=== PATIENT | female | born 1945 | race Caucasian/White ===

== ENCOUNTER 2017-10-21 05:52 | Inpatient (IN) | payer MEDICARE, SELFPAY ==
[2017-10-21] VITALS (13 sets, daily range): BP systolic 115–136; BP diastolic 33–67; PULSE 64–73; RESP 16–22; TEMP 36.2–37.3; O2SAT 92–100
[2017-10-21] MEDS: Lactated Ringers 1,000 ML 80 ML IV (06:41)
[2017-10-21] MEDS: Bupivacaine LIPOSOME/PF 133 MG/10 ML VIAL IJ (07:10)
[2017-10-21] MEDS: Lactated Ringers 1,000 ML 900 ML IV (07:30)
[2017-10-21] MEDS: Hydrogen Peroxide 3% 480 ML BTL (09:30)
[2017-10-21] MEDS: Bupivacaine 0.25% Pres-Free 30 ML VIAL 60 ML (09:30)
--- NOTE | 2017-10-21 10:21 | DI.REPORT_ITS ---
SYMPTOMS/DIAGNOSIS: CHECK TKR COMPONENTS LEFT KNEE: Two views. Comparison 07/18/17. The patient is now status post left total knee replacement. The orthopedic hardware appears in good position. The bones are intact. Skin agustin are present. IMPRESSION: Left TKR.
[2017-10-21] MEDS: POTASSIUM CHLORIDE/0.9% NACL 1,000 ML 125 MEQ IV ×2 (11:26→19:55)
[2017-10-21] MEDS: oxyCODONE-CR 10 MG TABCR PO ×2 (12:29→23:57)
--- NOTE | 2017-10-21 14:00 | IN_ITS ---
INPATIENT PHYSICAL THERAPY EVALUATION Date: 10/21/17 Referring Doctor: Thor Higuera PT Orders: PT Consult mobilize post op L TKR. Get OOB ambulating this afternoon. WBAT to L leg Precautions: WBAT L LE PATIENT PROFILE/ADMITTING DIAGNOSIS: Pt is a 72yr old female s/p left total knee arthroplasty by Dr. Higuera 10/21/17 PMHX: bilateral knee arthritis, right total knee arthroplasty 07/12, diabetes mellitus type II, pulmonary embolism, hypertension, hernia repair, abdominal hysterectomy Social History/Home Situation: Lives with in a 2 level home, 2-3 steps to enter, flight of steps to upstairs bedroom/bathroom but has an electric stair lift chair she can use to get upstairs. Baseline mobility independent gait with no device, independent with ADLS Equipment owned/DME: angie size FWW, commode, tub chair, grab bars, electric stair lift chair, cryocuff SUBJECTIVE: Pt lying in bed, agreeable to PT consult. States she has full sensation in her left leg, demonstrates by lifting it off the bed. OBJECTIVE: General Observation: IV L UE, luna catheter, MELTON dressing left leg, knee immobilizer L LE Mental Status: A& O x3 Pain: no c/o pain BED MOBILITY/TRANSFERS: *knee immobilizer for all transfers Supine-sit: HOB 30 degrees, supervision Sit-stand: SBA with FWW Stand-sit: SBA Sit-supine: HOB flat, supervision GAIT: * knee immobilizer for all gait SBA with FWW 25ftx2, WBAT L LE. Step to gait pattern with cues for sequencing THEREX Initiated ankle pumps, quad sets, glute sets x 20 reps BALANCE: Static sitting normal Dynamic Sitting normal Static Standing fair Dynamic Standing fair SPECIAL TESTS: Mobility Limitations Standardized Measure [facility] AM -PAC 6 clicks Basic Mobility Inpatient Short Form: raw score: 18 standardized score: 43.63 CMS score: 46.58% CMS modifier: CK INFORMED CONSENT/EDUCATION: Pt instructed in purpose of PT Consult and plan of care ASSESSMENT: Pt is a 72yr old female s/p left total knee arthroplasty by Dr. Higuera 10/21/17 in setting of bilateral knee arthritis, right total knee arthroplasty 07/12, diabetes mellitus type II. Patient presents with clinical signs and symptoms consistent with post op TKA as demonstrated by the following impairment level findings: weakness left quad, decreased mobility with bed transfers, standing transfers, gait requiring FWW for gait stability. Pt will benefit from skilled therapy intervention, anticipate return to home setting when medically cleared. Impairments are contributing to the following functional limitations: AMPAC score CMS score: 46.58% Patient is assessed as a * Moderate [id number] complexity based on the following: History: s/p left total knee arthroplasty by Dr. Higuera 10/21/17 in setting of bilateral knee arthritis, right total knee arthroplasty 07/12, diabetes mellitus type II. Examination: weakness left quad, decreased mobility with bed transfers, standing transfers, gait requiring FWW for gait stability. Presentation: evolving Decision Making: AMPAC score CMS score: 46.58% GOALS Goals x1 week 1. Supine-sit independent 2. Sit-Supine independent 3. Sit-Stand: supervision with FWW 4. Stand-sit: supervision 5. Bed-chair SBA with FWW 6. Chair-bed SBA with FWW 7. Gait supervision with FWW 75ftx2 WBAT L LE 8. Stairs: up.down 3 steps, SBA WBAT L LE 9. I with home exercise program for TKA PLAN OF CARE/TREATMENT PLAN: 1-2x/day, 7 days/ week x 1 week Plan of care has been reviewed with the SENIOR CIVIL ENGINEER providing the service under Physical therapy direction. Initiate physical therapy intervention for strengthening, bed mobility, transfers, gait, stairs, balance training, use of assistive device. DISCHARGE RECOMMENDATIONS Home with , pt has all DME TREATMENT TIME/MINUTES/CODES 25min IE 1335 G Codes in the area mobility of walking and moving around: current status [id number] -CK projected status GP [id number] . Discharge status ( if discharging) GP [id number] ammcd on AMPAC score CMS score: 46.58 % Yani Julian PT
[2017-10-21] MEDS: Docusate Sodium 100 MG CAP PO ×2 (14:14→19:55)
[2017-10-21] MEDS: Oxybutynin 5 MG TAB PO ×2 (14:14→19:55)
[2017-10-21] MEDS: Ketorolac 30 MG/ML VIAL IVP ×2 (15:25→21:33)
[2017-10-21] MEDS: Normal Saline Flush 10 ML SYR IV ×2 (15:26→21:34)
--- NOTE | 2017-10-21 16:59 | ROE_ITS ---
DATE OF PROCEDURE: October 21, 2017 PREOPERATIVE DIAGNOSIS: Osteoarthritis, left knee. POSTOPERATIVE DIAGNOSIS: Osteoarthritis, left knee. PROCEDURE: Left total knee arthroplasty. COMPONENTS USED: A size 2 tibial component, a size 2 posterior cruciate substituting femoral compone nt, a 10-mm posterior cruciate substituting size 2 polyethylene insert. All components were cemented . The patella was not resurfaced. SURGEON: Thor Higuera M.D. INTEGRITY SPECIALIST: Ranjit Bennett PA-C ANESTHESIA: General, with femoral nerve block, Jose Maria Hoover CRNA INDICATIONS: This is a 72-year-old white female with progressive pain and dysfunction of her left kn ee due to osteoarthritis. She has previously undergone a successful right total knee replacement in 2016. She has reached the point where she can no longer tolerate the pain in her left knee on a day- to-day basis and total knee arthroplasty was recommended. The risks and complications of the procedu re were explained to the patient in detail preoperatively. PROCEDURE: The patient was taken to the Operating Room on 10/21/17. A femoral nerve block was admini stered. She was placed supine on the operating table and a general anesthetic was administered. A p roximal tourniquet was applied to the left thigh and then the left lower extremity was prepped from t oes to tourniquet and draped free in the usual sterile fashion. Under proximal tourniquet control, a n anterior midline incision was made beginning just distal to the tibial tubercle and extending 4 inc hes proximal to the patella in the anterior midline. The incision was carried down through the fasci a. A medial parapatellar capsular incision was made and was carried proximally and longitudinally in the midline of the quadriceps tendon. A complete medial subperiosteal release was performed. The p atella was everted and the knee was hyperflexed. Medial and lateral meniscectomies were performed an d the anterior posterior cruciate ligament was sacrificed. The distal femur was resected using intra medullary alignment guides and jigs. The patient was found to require a size 2 femoral component. U sing extramedullary alignment guides and jigs, the proximal tibia was resected. Resection was 2 mm o ff the most deformed side which would be the medial side. Using the tibial trial as a guide for rota tional alignment, the keel for the tibial component was then reamed and punched out in proper rotatio nal alignment. A trial reduction at this point showed the knee came to full extension with a 10-mm i nsert while still providing good stability to varus/valgus stressing from 0 to 90 degrees of flexion. The patella was visualized and the articular cartilage in the patella appeared to be well preserved . When I measured the patella the thickness was only 20 mm. I felt that the resection would not pro vide enough bone to support a patellar component. I, therefore, used the electrocautery to cauterize circumferentially around the patella to denervate the patella. The proximal tibia was prepared for cementing with pulsed irrigation lavage with saline solution and drying with peroxide-soaked strip sponges. One batch of gentamicin-impregnated methylmethacrylate wa s vacuum mixed and hand packed onto the prepared tibia. Cement was then placed on the undersurface o f the tibial component. The tibial component was inserted and impacted into place with an impactor a nd mallet. It was further pressurized using the trial components and extending the knee. Excess abdulaziz ent was trimmed from the margins of the tibial component while the cement was still soft using the pl astic cement removal tool. When the first batch of methylmethacrylate had cured, the trial component s were removed. The posterior recesses were irrigated with pulsed irrigation lavage and then the dis bunny femur was prepared for cementing with pulsed irrigation lavage with saline solution and drying wi th peroxide-soaked strip sponges. A second batch of gentamicin-impregnated methylmethacrylate was va cuum mixed and was hand packed onto the prepared distal femur. Cement was then placed on the posteri or aspect of the femoral component. The femoral component was inserted and impacted into place with the impactor and mallet and pressurized using the trial insert and extending the knee. Excess cement was trimmed from the margins of the femoral component while the cement was still soft using the ceme nt removal tool. When the second batch of gentamicin-impregnated methylmethacrylate had cured, the t rial insert was removed. The posterior recesses were checked a final time and any residual bone or c ement debris was removed at this time using rongeurs and osteotomes. Betadine and saline solution wa s instilled into the wound, allowed to stay for 60 seconds, and then suctioned. The actual 10-mm ins ert was selected and was inserted into the tibial component and then reduced onto the femoral condyle s. Patellar tracking using the rule of no thumb showed that patellar tracking was anatomic. The kne e was flexed over soft goods and closure was begun. The medial capsule and incision were infiltrated with 0.5% Marcaine solution. The medial capsule was approximated with interrupted [id number] sutures of #1 Vicryl suture material. The quadriceps tendon incision was approximated with interrupted [id number] sutures of #1 Vicryl suture materia l. The subcu was approximated with interrupted #2-0 Vicryl sutures. The skin edges were approximate d with skin agustin. Sterile dressings were applied of Xeroform gauze, sterile gauze 4x4s, ABD pad, wrapped with a Kerlix bandage, and then a long leg Molina compressive dressing was applied. A knee im mobilizer splint was placed over the compression dressing to maintain the knee in extension. The humberto rniquet was released at this point. The patient received 1 gram of tranexamic acid prior to tourniqu et inflation and a second gram of tranexamic acid after tourniquet deflation to decrease perioperativ e bleeding. The patient's anesthesia was reversed without complication. Blood loss was minimal due to tourniquet use. The patient was discharged to the Recovery Room in good condition.
[2017-10-21] MEDS: glipiZIDE 5 MG TAB 10 MG PO (19:54)
[2017-10-21] MEDS: traZODone 50 MG TAB 100 MG PO (21:34)
[2017-10-22] VITALS (7 sets, daily range): BP systolic 100–136; BP diastolic 46–66; PULSE 55–124; RESP 16–20; TEMP 36.7–37.2; O2SAT 94–97
[2017-10-22] MEDS: Ketorolac 30 MG/ML VIAL IVP ×4 (04:08→21:20)
[2017-10-22] MEDS: Normal Saline Flush 10 ML SYR IV ×3 (04:08→21:21)
[2017-10-22 06:52] LABS: HCT 32.6 % (36.0-46.0); Mean Corp. HGB Concentration 33.7 g/dL (32.0-36.0); Mean Corpuscular Hemoglobin 30.8 pg (27.0-33.0); Mean Corpuscular Volume 91.3 fL (80-95); Mean Platelet Volume 10.9 fL (8.0-11.0); Platelet Count 143 x1000/uL (130-400); RBC 3.57 m/cumm (4.00-5.20); RBC Distribution Width 13.2 % (11.7-14.6); White Blood Cell Count 10.38 k/cumm (4.4-10.8)
--- NOTE | 2017-10-22 08:20 | INPTTR_ITS ---
PHYSICAL THERAPY PROGRESS NOTE Date: 10/22/17 PRECAUTIONS: WBAT on L SUBJECTIVE: Augusta states that she feels good this morning, that the urinary catheter is the only thing causing her discomfort. OBJECTIVE PAIN: No c/o pain BED MOBILITY/TRANSFERS Supine-sit: I with HOB flat Sit-stand: S Stand-sit: S GAIT Assistive Device FWW Weightbearing WBAT on L Assist: S Distance: 100' Deviation Step-through THEREX: Patient performed a LE strengthening and stabilization program, as per flow sheet. Exercises were performed with Molina dressing in place and knee immobilizer on. Patient performed ankle pumps, quad sets, glute sets, and SLR. See flow sheet for reps. ASSESSMENT: Patient tolerated session without c/o pain in L LE. Patient was able to demonstrate steady pace and gait with FWW support utilizing a step- through gait pattern. Patient would benefit from continued strengthening and gait training to improve endurance. PLAN: Continue with PT's POC TREATMENT CODES/TIME: 30 minutes; TAx1, TPx1
[2017-10-22] MEDS: Lovastatin 20 MG TAB PO (08:25)
[2017-10-22] MEDS: Multivitamin w/Minerals TAB 1 TAB PO (08:25)
[2017-10-22] MEDS: Losartan 25 MG TAB PO (08:26)
[2017-10-22] MEDS: Pantoprazole 40 MG TABCR PO (08:26)
[2017-10-22] MEDS: Oxybutynin 5 MG TAB PO ×3 (08:26→19:54)
[2017-10-22] MEDS: Docusate Sodium 100 MG CAP PO ×3 (08:26→19:54)
[2017-10-22] MEDS: glipiZIDE 5 MG TAB 10 MG PO ×2 (08:26→19:54)
[2017-10-22] MEDS: Aspirin 81 MG CHEW PO (08:26)
[2017-10-22] MEDS: Enoxaparin 30 MG/0.3 ML SYR SC (09:39)
--- NOTE | 2017-10-22 11:13 | INPTTR_ITS ---
PHYSICAL THERAPY PROGRESS NOTE Date: 10/22/17 PRECAUTIONS: WBAT L LE, knee immobilizer with out of bed activity SUBJECTIVE: Pt stating she is bored, asking when the luna catheter will come out. OBJECTIVE: General Observation: IV L UE, luna catheter, MELTON dressing left leg, knee immobilizer L LE Pain: no c/o pain BED MOBILITY/TRANSFERS: *knee immobilizer for all transfers Sit-stand: supervision with FWW Stand-sit: supervision GAIT: * knee immobilizer for all gait supervision with FWW 200ft, WBAT L LE. Step through gait pattern, steady nissa , cues to decrease stride length. STAIRS *knee immobilizer on for stair training instructed in up/down 3 steps (2x) with bilateral railings, step to step gait pattern.Pt able to perform stairs with SBA/supervision BALANCE: Static sitting normal Dynamic Sitting normal Static Standing fair Dynamic Standing fair ASSESSMENT: Pt mobilizing well with use of FWW, continues with quad weakness on stairs but no loss of balance, she is able to perform all mobility with use of knee immobilizer with supervision only, no assistance. Pt able to perform SLR with left leg 10x. Pt is at functional level to return to home setting when medically cleared. PLAN: Progress strengthening Progress gait mobility TREATMENT CODES/TIME: 24min IE TAx2 11:10 Yani Julian PT
[2017-10-22] MEDS: oxyCODONE-CR 10 MG TABCR PO (11:56)
--- NOTE | 2017-10-22 12:10 | INITIAL_ITS ---
Date of Service: 10/22/17 Time of Service: 11:52 Care Management Initial Assess REASON FOR HOSPITALIZATION:: Left total knee arthroplasty. PAST MEDICAL HISTORY/PAST SURGICAL HISTORY:: Osteoarthritis, essential hypertension, hyperlipidemia, Type 2 diabetes, PE, tobacco use. PREVIOUS FUNCTIONAL STATUS/SOCIAL/FAMILY SUPPORTS:: Augusta lives in her own home in [place] with her . She has three adult children who reside out of the area. 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 CURRENT FUNCTIONAL STATUS:: Augusta is sitting up in her recliner when this CM visits. She is engaged during conversation and denies pain. She wants her luna catheter removed but is otherwise upbeat and reports feeling fine. This is her second knee surgery so she reports that she knew what to expect and has all equipment necessary when she returns home. ADVANCE DIRECTIVES:: None on file. Pt reports that her will make decisions for her should she be unable to herself however she is not interested in having her choices in writing. Has patient been provided with information about the portal?: Yes Did the patient sign up for the portal?: No (No internet access. ) CODE STATUS:: Full Code INSURANCE COVERAGE / FINANCIAL ISSUES:: Medicare, [employer]. CURRENT HOME/COMMUNITY SERVICES/EQUIPMENT:: No current services at this time. PRIMARY CARE PHYSICIAN:: Gina Holden. POTENTIAL DISCHARGE NEEDS:: Follow up appointment with Dr. Higuera. Outpatient PT. PATIENT/FAMILY EDUCATION NEEDS:: Discharge education, limitations, and follow up plan of care, Ask Me Three discussion and self management. ANTICIPATED BARRIERS TO DISCHARGE:: No anticipated barriers at this time. TRANSPORTATION:: Augusta's will transport her home via private vehicle when medically cleared by MD. PLAN:: Augusta will discharge home when medically ready per MD. Anticipate pt will discharge home with no services, will need outpatient PT and will need to follow up with MD.
[2017-10-22] MEDS: POTASSIUM CHLORIDE/0.9% NACL 1,000 ML 125 MEQ IV (12:59)
[2017-10-22] MEDS: Acetaminophen 325 MG TAB 650 MG PO (16:14)
--- NOTE | 2017-10-22 20:34 | PGE_ITS ---
DATE: October 22, 2017 ASSESSMENT: Doing well at 24 hours postop left total knee replacement. PLAN: #1. We will discontinue her IV fluids. #2. We will discontinue the OxyContin because it does not seem that she really needs it and it makes her a little woozy. She has three doses of Toradol and that will probably be enough to get her to t omorrow. #3. Tomorrow we will plan on taking off her Molina dressing and start active flexion of her left knee . #4. Continue to mobilize with PT until fully independent and safe for home discharge. POSTOP DAY #1 SUBJECTIVE: She feels really good. She is not having much pain. She does have a complaint about pa in medicines in that she said that the OxyContin she got as a scheduled dose made her quite woozy and really affected her. She does not really feel that she needs that extra narcotic. OBJECTIVE: She is urinating since her Bradley has been discontinued. She has good active dorsiflexion and plantar flexion of the left ankle. She has good sensation to th e left toes. She has been mobilized by PT and is doing pretty well. Blood glucose is running a little high - it was 149 this morning. She is afebrile. Vital signs are stable. Hemoglobin was 11 grams this morning. She has good I's and O's.
[2017-10-22] MEDS: traZODone 50 MG TAB 100 MG PO (21:18)
[2017-10-23 00:10] VITALS: BP 132/72; PULSE 64; RESP 16; TEMP 36.7; O2SAT 94
[2017-10-23 03:34] VITALS: BP 167/70; PULSE 65; RESP 16; TEMP 36.7; O2SAT 95
[2017-10-23] MEDS: Ketorolac 30 MG/ML VIAL IVP (03:35)
[2017-10-23 07:08] LABS: HCT 31.6 % (36.0-46.0); HGB 10.9 g/dL (12.0-15.5); Mean Corp. HGB Concentration 34.5 g/dL (32.0-36.0); Mean Corpuscular Hemoglobin 31.2 pg (27.0-33.0); Mean Corpuscular Volume 90.5 fL (80-95); Mean Platelet Volume 11.3 fL (8.0-11.0); Platelet Count 128 x1000/uL (130-400); RBC 3.49 m/cumm (4.00-5.20); RBC Distribution Width 13.1 % (11.7-14.6); White Blood Cell Count 7.27 k/cumm (4.4-10.8)
[2017-10-23 07:45] VITALS: BP 149/65; PULSE 75; RESP 20; TEMP 36.9; O2SAT 94
--- NOTE | 2017-10-23 08:50 | INDS_ITS ---
PHYSICAL THERAPY INPATIENT DISCHARGE NOTE Date:10/23/17 Dates of Service: 10/21/17-10/23/17 SUBJECTIVE: Pt lying in bed, alert and agreeable to PT session, states she is hoping she can go home today. OBJECTIVE: General Observation: MOLINA dressing left leg, knee immobilizer L LE Pain: no c/o pain MOLINA Dressing removed and replaced with Xeroform, 4- 4x4 gauze and long leg KYAW hose, cryocuff applied to left knee after breakfast. Knee immobilizer adjusted to fit leg with removal of Molina dressing. BED MOBILITY/TRANSFERS: Supine-sit: independent Sit-stand: independent Stand-sit: independent Bed-chair: independent with FWW GAIT: independent with FWW 200ft WBAT L LE, knee immobilizer in place. Pt left up in chair for breakfast. THEREX Pt independent with home exercise program, able to straight leg raise 10 reps with no assistance. Performed ankle pumps, quad sets, glute sets, hip abduction and SLR x 20 bilaterally. L KNEE AROM 0-80 flexion BALANCE: Static sitting normal Dynamic Sitting normal Static Standing good Dynamic Standing fair ASSESSMENT: Pt is a 72yr old female s/p left total knee arthroplasty by Dr. Higuera 10/21/17 in setting of bilateral knee arthritis, right total knee arthroplasty 07/12, diabetes mellitus type II. Patient has made good progress with therapy intervention, is independent with transfers and gait with FWW, left knee ROM is 0-80 degrees, good activation of quad with straight leg raises. Pt has met therapy goals and is at functional level to return to home setting when medically cleared. GOALS Goals x1 week 1. Supine-sit independent 2. Sit-Supine independent 3. Sit-Stand: supervision with FWW 4. Stand-sit: supervision 5. Bed-chair SBA with FWW 6. Chair-bed SBA with FWW 7. Gait supervision with FWW 75ftx2 WBAT L LE 8. Stairs: up.down 3 steps, SBA WBAT L LE 9. I with home exercise program for TKA Pt met goals # 1-9 DISCHARGE RECOMMENDATIONS Home with , pt has all DME TREATMENT TIME/MINUTES/CODES 25min TAx1 TP x1 7:50am G Codes in the area mobility of walking and moving around:_projected status GP [id number] . Discharge status (if discharging) GP [id number] Yani Julian PT
[2017-10-23 09:00] VITALS: O2SAT 94
[2017-10-23] MEDS: Oxybutynin 5 MG TAB PO (09:22)
[2017-10-23] MEDS: Enoxaparin 30 MG/0.3 ML SYR SC (09:22)
[2017-10-23] MEDS: Aspirin 81 MG CHEW PO (09:22)
[2017-10-23] MEDS: Milk of Magnesia 30 ML CUP PO (09:22)
[2017-10-23] MEDS: Lovastatin 20 MG TAB PO (09:22)
[2017-10-23] MEDS: Multivitamin w/Minerals TAB 1 TAB PO (09:22)
[2017-10-23] MEDS: Pantoprazole 40 MG TABCR PO (09:22)
[2017-10-23] MEDS: Losartan 25 MG TAB PO (09:23)
[2017-10-23] MEDS: glipiZIDE 5 MG TAB 10 MG PO (09:23)
[2017-10-23] MEDS: Docusate Sodium 100 MG CAP PO (09:23)
[2017-10-23 11:30] VITALS: BP 142/61; PULSE 69; RESP 18; TEMP 37.1; O2SAT 95
--- NOTE | 2017-10-23 11:53 | PDOC.CMPRO ---
Date of Service: 10/23/17 Time of Service: 11:53 Care Management Progress Note S/O: Pt is doing well when CM visits this morning. Pt reports that she can bend her knee quite a bit and is not having any pain at present. Laura is waiting to hear from Dr. Higuera regarding a potential discharge today. Plan for discharge to home when ready is unchanged. A: 72 year old woman admitted with left total knee arthroplasty. Post op day 2. P: Pt will require outpatient PT and a follow up appointment with MD. Laura reports that she has all of the necessary equipment she will be needing at home. Laura will discharge home when medically cleared by MD. Pt's husbnad will transport when pt is ready for discharge per MD.
--- NOTE | 2017-10-23 12:32 | PDOC.DISCH_ITS ---
Discharge - Discharge Orders Referrals: Thor Higuera MD [ [facility] STAFF PHYSICIAN] - 11/06/17 10:30 am - Discharge Plan Disposition: HOME Condition: Good Diet:: As Tolerated Equipment/Supplies:: Walker Activity:: Activity as Tolerated - Instructions Additional Instructions: Elevate L leg when sitting. Stop using the knee splint when you can lift L leg off the bed with it off. May shower and get agustin wet tomorrow. After showering, pat agustin dry and cover them with light gauze dressing. Use long stocking on L leg during the daytime only, for 2 weeks. Apply cryocuff to L knee 4 times/day for 1 hour each time. Take one baby aspirin(81mg) twice/day for 30 days to prevent bloodclots in legs. Outpatient physical therapy ar [facility] to rehab L total knee. Start Fri or Mon. Follow up in 's office in 2 weeks. Take ibuprofen 3 times/day as prescribed. Take oxycodone every 6 hours, if needed, for breakthru pain.
--- NOTE | 2017-10-23 13:19 | DSE_ITS ---
DISCHARGE SUMMARY DATE OF DISCHARGE October 23, 2017 DATE OF ADMISSION October 21, 2017 REASON FOR ADMISSION Left total knee replacement. HISTORY This is a 72-year-old white female with progressive disability and pain due to osteoarthritis of her left knee. She has previously undergone a right total knee replacement with good result. Her pain is no longer controlled with conservative measures, total knee replacement was recommended to alleviate her pain and restore some of her previous ambulatory abilities. She was admitted for the procedure a t this time. Admission laboratory values were obtained on an outpatient basis preoperatively. No abnormalities we re identified that would be a contraindication of the planned surgery. HOSPITAL COURSE The patient was admitted to the hospital following a total knee replacement on October 21, 2017. She pro gressed rapidly with her mobilization, achieving all acute care goals by October 23, 2017. At the time of discharge, she was independent with transfers and ambulation. She was flexing her knee to about 8 0 degrees. Her incision was clean and dry. She was afebrile. Taking only oral pain medications. She w as therefore discharged home. DISCHARGE INSTRUCTIONS Discharge instructions were printed and given to the patient. She was instructed to elevate her left leg when sitting. She is to use the Cryo/Cuff to the left knee four times a day for an hour each time. She is to wear the long KYAW stockings during the daytime only for the next two weeks to decrease swel ling. She will begin outpatient physical therapy on Saturday or Saturday at [facility] for rehab of h er left total knee. FOLLOWUP She will followup in Dr. Higuera's office in two weeks. She may shower and get her agustin wet tomorrow. She is given a prescription for swelling and inflammation of ibuprofen 600 mg p.o. t.i.d. and a presc ription for pain of Percocet 5/325 1 tablet every 6 hours as needed for breakthrough pain. FINAL DIAGNOSES 1. Osteoarthritis left knee. 2. Diabetes. 3. Hypertension. PROCEDURE Left total knee replacement on October 21, 2017 CONDITION ON DISCHARGE Improved.
--- NOTE | 2017-10-23 13:26 | PDOC.CMDIS ---
Date of Service: 10/23/17 Time of Service: 13:26 LACE Index Scoring Tool - Questions: Length of Stay (in days): 3 Acuity (Admit via E.D.?): No E.D. Visits: 0 - Answers: Total Score: 3 Risk of Readmission: Low Risk Care Management Discharge Reason for Hospitalization: Left total knee arthroplasty. Discharge Plan: Augusta will return home when ready per MD. Pt's will transport her via private vehicle. Augusta will begin outpatient PT at [facility] on Saturday or Saturday of next week. Pt has a follow up appointment with Dr. Higuera on 11/06/2017. Patient/Family Education Needs: Review discharge instructions, discussed Ask Me Three. Services Needed at Discharge: Physical Therapy
--- NOTE | 2017-10-23 13:31 | CMDISCH_ITS ---
Date of Service: 10/23/17 Time of Service: 13:26 LACE Index Scoring Tool - Questions: Length of Stay (in days): 3 Acuity (Admit via E.D.?): No E.D. Visits: 0 - Answers: Total Score: 3 Risk of Readmission: Low Risk Care Management Discharge Reason for Hospitalization: Left total knee arthroplasty. Discharge Plan: Augusta will return home when ready per MD. Pt's will transport her via private vehicle. Augusta will begin outpatient PT at [facility] on Saturday or Saturday of next week. Pt has a follow up appointment with Dr. Higuera on 11/06/2017. Patient/Family Education Needs: Review discharge instructions, discussed Ask Me Three. Services Needed at Discharge: Physical Therapy
== END 2017-10-23 14:42 | disposition home or self-care (01) | DRG 470 ==
PROVIDERS: Admitting Provider Orthopaedic Surgery; PCP Internal Medicine; Visit Provider Orthopaedic Surgery
DX: M17.12 Unilateral primary osteoarthritis, left knee (principal); Z96.652 Presence of left artificial knee joint; Z96.651 Presence of right artificial knee joint; E11.9 Type 2 diabetes mellitus without complications; I10 Essential (primary) hypertension
CPT/HCPCS: 27447; 36415 ×2; 85027 ×2; 73560; 76942; 97530 ×2; 97110 ×3; 97162; J0171; J1650 ×2; J1885 ×8; J2405; J2250 ×2; J0690 ×5; J1100; J3010 ×2; J0131

== ENCOUNTER 2017-12-10 11:00 | Outpatient (CLI) | payer MEDICARE, SELFPAY | END 2017-12-10 11:01 | PROVIDERS: PCP Internal Medicine; Visit Provider Orthopaedic Surgery | DX: Z47.1 Aftercare following joint replacement surgery (principal); Z96.652 Presence of left artificial knee joint ==

== ENCOUNTER 2017-12-16 13:45 | Outpatient (RCR) | payer MEDICARE, SELFPAY ==
--- NOTE | 2017-11-29 13:00 | PTTR_ITS ---
DATE: 11/29/17 SUBJECTIVE: Augusta indicates that she definitely feels as though she is ready to be discharged from PT services. Is going to discuss this with supervising therapist next session. Indicates that she has been doing for HEP regularly and has had no problem with these activities. Manual therapy: ([id number]). Did receive patella mobilizations in all directions as well as anterior/posterior tibiofemoral joint mobilization while in seated and supine positions. Does continue to have some restriction with end range extension which with mobilization can be brought to 0 degrees. Patient was made aware that should she be weaned to HEP that she is going to have to continue to work on this diligently to avoid flexor contraction. Soft tissue stretching of the hamstring, quads, hip flexors and ITB were also performed for 3 reps x20 to 30 seconds each. Therapeutic procedures ([id number]). * x See flow sheet: focus was on strengthening of the L LE and hip stabilizers. * x Provided skilled instruction in proper exercise performance: * x Provided skilled manual cues to facilitate proper muscle recruitment and/ or movement pattern: Ended without use of modalities at end of session. Direct treatment time: 50 mins Total treatment time: 50 mins SG/dl
--- NOTE | 2017-12-03 09:41 | NT_ITS ---
Patient's cancelled her appointment today stating she is sick. Thais Blkae [place]
--- NOTE | 2017-12-03 13:26 | NT_ITS ---
December 03, 2017 Augusta cancelled today scheduled appt due to illness
--- NOTE | 2017-12-04 16:01 | NT_ITS ---
December 04, 2017 Augusta contacted dept to cancel appt due to a family emergency. She reported that her daughter is currently in the hospital. She will contact us when she can reappoint.
--- NOTE | 2017-12-16 13:45 | PN_ITS ---
DATE: December 16, 2017 REFERRING: Dr. Higuera REFERRING PROVIDER DIAGNOSIS:: S/p left TKR PHYSICAL THERAPY DIAGNOSIS: s/p left TKR REPORTING PERIOD (for progress note and discharge note only): 10/28/17-12/16/17 SUBJECTIVE: Augusta reports she is back to her previous level of function. She reports she feels that she is close to 100% improvement post operatively. She does not have to follow up with orthopedics for a year. She reports she went 4- wheeling the other day without difficulty. She was able to walk 2 miles without pain or limitation. 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 She climbs her flight of stairs 2-3 times a day without limitation. She is overall very pleased with how she is doing. Standardized Measures: Lower Extremity Functional Scale Score (LEFS): 12% perceived disability rating OBJECTIVE: Gait: Augusta is non-antalgic with her gait. She is independent without assistive device. Good nissa. Equal stride and stance phase. ROM: Demonstrates active knee flexion to 110 degrees, 0 degrees extension. She demonstrates WNL hip and ankle mobility. Joint accessory motion: Good patellar mobility all planes. Strength: Demonstrates 4+/5-5/5 throughout all LE myotomes. Neurological: Intact to light touch. Balance: Unilateral stance 10 seconds each side. Treatment: Following reassessment reviewed HEP in promotion of I self management program. ASSESSMENT: Augusta is s/p left TKR. She overall is doing great. She demonstrates WNL ROM, good functional strength and endurance. She is independent without assistive device. She is back to her previous level of function without difficulty. At this time do not feel that she continues to require skilled PT services. Recommend that she continue with her strong HEP in promotion of her ROM and functional strength. G-Codes Patient's primary functional limitation is in the category of: Mobility - walking and moving around Projected goal: [id number] Discharge Status: [id number] STG: _6___ weeks. 1. Patient will demonstrate left knee AROM 0-100 degrees. (MET) 2. Patient will demonstrate left knee strength 4/5 or better. (MET) 3. Patient will ambulate independently with no AD and no antalgia 200 meters or more. (MET) 4. Patient will score 35% impaired or less on the LEFS. (MET) LTG: __12__ weeks. 1. Patient will demonstrate left knee AROM equal to that of the opposite side. ( MET) 2. Patient will demonstrate 5/5 left knee strength. (MET) 3. Patient will ambulate independently community distances on even and uneven terrain.(MET) 4. Patient will negotiate 12 stairs with reciprocal pattern. (MET) 5. Patient will score 19% impaired or less on the LEFs. (MET) 6. Independent HEP. (MET) PLAN: Patient will be considered discharged from our care at this time. She will continue with her HEP at this time due to her overall level of improvement. Patient is in agreement with this plan. She will contact us with any questions. And proceed with her yearly follow up with Dr. Higuera. *Dr. Higuera, please sign this discharge note if you are in agreement with this plan Thor Higuera MD
== END 2017-12-27 23:59 | disposition home or self-care (01) ==
LOC: PT 13:45
PROVIDERS: PCP Internal Medicine; Referring Provider Orthopaedic Surgery; Visit Provider Orthopaedic Surgery
DX: M17.12 Unilateral primary osteoarthritis, left knee (principal); Z96.652 Presence of left artificial knee joint; Z47.1 Aftercare following joint replacement surgery; M25.862 Other specified joint disorders, left knee
CPT/HCPCS: 97110; 97140

== ENCOUNTER 2018-03-31 00:48 | Outpatient (CLI) | payer MEDICARE, SELFPAY ==
--- NOTE | 2018-03-31 11:06 | DI.MAMMO_ITS ---
SYMPTOMS/DIAGNOSIS: DIAGNOSTIC, SKIN LESION OF BREAST, N64.9 MAMMOGRAM: Mammograms were interpreted according to the usual protocol including computer analysis with CAD system, tomosynthesis and C view imaging. Comparison with prior examinations. Breast density B. No masses or microcalcifications are seen. There is nothing to suggest malignancy. IMPRESSION: Negative mammogram. Routine screening is recommended. Category I. MQSA ASSESSMENT OF FINDINGS: Negative. Category 1. Patient will receive a letter notifying them of these results. BI-RADS category B. There are scattered areas of fibroglandular density.
[2018-03-31 14:06] LABS: Abs Immature Grans 0.01 k/cumm (0.0-0.09); Absolute Basophil Count 0.03 k/cumm (0.0-0.2); Absolute Eosinophil Count 0.09 k/cumm (0.0-0.7); Absolute Lymphocyte Count 1.65 k/cumm (1.2-3.4); Absolute Monocyte Count 0.45 k/cumm (0.11-0.7); Absolute Neutrophil Count 5.05 k/cumm (1.2-6.7); Basophils % 0.4; Eosinophils % 1.2; HCT 41.8 % (36.0-46.0); HGB 14.1 g/dL (12.0-15.5); Immature Grans % 0.1; Lymphocytes % 22.7; Mean Corp. HGB Concentration 33.7 g/dL (32.0-36.0); Mean Corpuscular Hemoglobin 31.4 pg (27.0-33.0); Mean Corpuscular Volume 93.1 fL (80-95); Mean Platelet Volume 11.2 fL (8.0-11.0); Monocytes % 6.2; Neutrophils % 69.4; Platelet Count 186 x1000/uL (130-400); RBC 4.49 m/cumm (4.00-5.20); RBC Distribution Width 13.9 % (11.7-14.6); White Blood Cell Count 7.28 k/cumm (4.4-10.8)
[2018-03-31 14:47] LABS: ALT 23 U/L (12-78); AST 16 U/L (15-37); Albumin 4.2 g/dL (3.4-5.0); Alkaline Phosphatase 85 U/L (46-116); Anion Gap 9.5 mmol/L (3-11); BUN 13 mg/dL (7-18); Bilirubin, Total 0.4 mg/dL (0.2-1.0); CO2 29.5 mmol/L (21.0-32.0); CREATININE 0.77 mg/dL (0.55-1.02); Calcium 9.1 mg/dL (8.5-10.1); Chloride 105 mmol/L (98-107); Glucose 178 mg/dL (70-100); Potassium 4.1 mmol/L (3.5-5.1); Sodium 144 mmol/L (136-145); Total Protein 7.1 g/dL (6.4-8.2)
== END 2018-03-31 01:08 ==
PROVIDERS: PCP Internal Medicine; Visit Provider Internal Medicine
DX: E11.8 Type 2 diabetes mellitus with unspecified complications (principal); D64.9 Anemia, unspecified; N64.89 Other specified disorders of breast; I10 Essential (primary) hypertension
CPT/HCPCS: 36415; 77062; 77066; 80053; 83036; 85025; G0279

== ENCOUNTER 2018-09-08 20:59 | Outpatient (REF) | payer MEDICARE, SELFPAY | END 2018-09-08 21:19 | LOC: LBN 20:59 | PROVIDERS: PCP Internal Medicine; Visit Provider Internal Medicine | DX: R30.0 Dysuria (principal) | CPT/HCPCS: 87077; 87086; 87186 ==

== ENCOUNTER 2018-09-18 02:09 | Outpatient (CLI) | payer MEDICARE, SELFPAY ==
[2018-09-18 11:51] LABS: Hemoglobin A1C 8.6 % (4.5-6.2)
[2018-09-18 12:06] LABS: ALT 20 U/L (12-78); AST 11 U/L (15-37); Albumin 3.6 g/dL (3.4-5.0); Alkaline Phosphatase 79 U/L (46-116); Anion Gap 8.7 mmol/L (3-11); BUN 10 mg/dL (7-18); Bilirubin, Total 0.4 mg/dL (0.2-1.0); CO2 29.3 mmol/L (21.0-32.0); CREATININE 0.73 mg/dL (0.55-1.02); Calcium 8.9 mg/dL (8.5-10.1); Chloride 101 mmol/L (98-107); Glucose 235 mg/dL (70-100); Potassium 4.1 mmol/L (3.5-5.1); Sodium 139 mmol/L (136-145); Total Protein 6.6 g/dL (6.4-8.2)
[2018-09-18 12:09] LABS: Abs Immature Grans 0.01 k/cumm (0.0-0.09); Absolute Basophil Count 0.01 k/cumm (0.0-0.2); Absolute Eosinophil Count 0.09 k/cumm (0.0-0.7); Absolute Lymphocyte Count 1.14 k/cumm (1.2-3.4); Absolute Monocyte Count 0.37 k/cumm (0.11-0.7); Absolute Neutrophil Count 4.03 k/cumm (1.2-6.7); Basophils % 0.2; Eosinophils % 1.6; HCT 41.7 % (36.0-46.0); HGB 14.2 g/dL (12.0-15.5); Immature Grans % 0.2; Lymphocytes % 20.2; Mean Corp. HGB Concentration 34.1 g/dL (32.0-36.0); Mean Corpuscular Hemoglobin 31.6 pg (27.0-33.0); Mean Corpuscular Volume 92.7 fL (80-95); Mean Platelet Volume 11.5 fL (8.0-11.0); Monocytes % 6.5; Neutrophils % 71.3; Platelet Count 188 x1000/uL (130-400); RBC Distribution Width 12.9 % (11.7-14.6); White Blood Cell Count 5.65 k/cumm (4.4-10.8)
== END 2018-09-18 02:29 ==
PROVIDERS: PCP Internal Medicine; Visit Provider Internal Medicine
DX: E11.9 Type 2 diabetes mellitus without complications (principal); I10 Essential (primary) hypertension; R00.0 Tachycardia, unspecified; R50.9 Fever, unspecified; R30.0 Dysuria
CPT/HCPCS: 36415; 80053; 83036; 84443; 85025; 87086

== ENCOUNTER 2018-09-26 13:07 | Outpatient (REF) | payer MEDICARE, SELFPAY ==
[2018-09-26 19:44] LABS: Bilirubin Negative (Negative); Blood Negative (Negative); Clarity Sl Cloudy; Glucose 100 mg/dL (Negative); Ketones Negative (Negative); Leukocyte Esterase Small (Negative); Nitrite Negative (Negative); Specific Gravity 1.015 (1.005-1.025); Urobilinogen 0.2 EU/dL (Up TO 0.2)
[2018-09-26 20:22] LABS: Bacteria Many HPF (Negative); C & S Indicated? C&S Done As Ordered; Casts Negative LPF (Negative); Crystals Negative HPF (Negative); Epithelial Cells Few HPF (Negative); Mucus Negative (Negative); Other Cells Moderate Renal (Negative); RBC Negative (0-2)
== END 2018-09-26 13:27 ==
LOC: LBN 13:07
PROVIDERS: PCP Internal Medicine; Visit Provider Nurse Practitioner Family
DX: R82.90 Unspecified abnormal findings in urine (principal)
CPT/HCPCS: 87077; 81003; 81015; 87086; 87186

== ENCOUNTER → 2018-10-01 10:42 | Outpatient (BNVA) | payer MEDICARE, SELFPAY | PROVIDERS: PCP Internal Medicine; Referring Provider Internal Medicine; Visit Provider Orthopaedic Surgery | DX: Z47.1 Aftercare following joint replacement surgery (principal); Z96.659 Presence of unspecified artificial knee joint; E11.8 Type 2 diabetes mellitus with unspecified complications; I10 Essential (primary) hypertension | CPT/HCPCS: 99211; 99212 ==

== ENCOUNTER 2018-12-31 01:51 | Outpatient (CLI) | payer MEDICARE, SELFPAY ==
[2018-12-31 12:41] LABS: Hemoglobin A1C 8.6 % (4.5-6.2)
== END 2018-12-31 02:11 ==
PROVIDERS: PCP Internal Medicine; Visit Provider Internal Medicine
DX: E11.65 Type 2 diabetes mellitus with hyperglycemia (principal)
CPT/HCPCS: 36415; 83036

== ENCOUNTER 2019-01-07 13:17 | Outpatient (REF) | payer MEDICARE, SELFPAY | END 2019-01-07 13:37 | LOC: LBN 13:17 | PROVIDERS: PCP Internal Medicine; Visit Provider Internal Medicine | DX: R82.90 Unspecified abnormal findings in urine (principal) | CPT/HCPCS: 87077; 87086; 87186 ==

== ENCOUNTER 2019-05-27 11:47 | Outpatient (CLI) | payer MEDICARE, SELFPAY ==
[2019-05-27 12:51] LABS: Abs Immature Grans 0.01 k/cumm (0.0-0.09); Absolute Basophil Count 0.01 k/cumm (0.0-0.2); Absolute Eosinophil Count 0.05 k/cumm (0.0-0.7); Absolute Lymphocyte Count 1.07 k/cumm (1.2-3.4); Absolute Monocyte Count 0.45 k/cumm (0.11-0.7); Absolute Neutrophil Count 4.52 k/cumm (1.2-6.7); Basophils % 0.2; Eosinophils % 0.8; HCT 41.6 % (36.0-46.0); HGB 14.2 g/dL (12.0-15.5); Immature Grans % 0.2 %; Lymphocytes % 17.5; Mean Corp. HGB Concentration 34.1 g/dL (32.0-36.0); Mean Corpuscular Hemoglobin 30.8 pg (27.0-33.0); Mean Corpuscular Volume 90.2 fL (80-95); Mean Platelet Volume 11.3 fL (8.0-11.0); Monocytes % 7.4; Neutrophils % 73.9; Platelet Count 200 x1000/uL (130-400); RBC 4.61 m/cumm (4.00-5.20); RBC Distribution Width 13.1 % (11.7-14.6); White Blood Cell Count 6.11 k/cumm (4.4-10.8)
[2019-05-27 12:56] LABS: Hemoglobin A1C 8.8 % (3.8-5.6)
[2019-05-27 13:11] LABS: ALT 18 U/L (14-59); AST 15 U/L (15-37); Albumin 3.9 g/dL (3.4-5.0); Alkaline Phosphatase 80 U/L (46-116); Anion Gap 9.4 mmol/L (3-11); BUN 12 mg/dL (7-18); Bilirubin, Total 0.5 mg/dL (0.2-1.0); CO2 28.6 mmol/L (21.0-32.0); CREATININE 0.86 mg/dL (0.55-1.02); Calcium 8.8 mg/dL (8.5-10.1); Chloride 104 mmol/L (98-107); Glucose 234 mg/dL (74-106); Potassium 4.5 mmol/L (3.5-5.1); Sodium 142 mmol/L (136-145); Total Protein 6.7 g/dL (6.4-8.2)
== END 2019-05-27 12:07 ==
PROVIDERS: PCP Internal Medicine; Visit Provider Internal Medicine
DX: I10 Essential (primary) hypertension (principal); E11.9 Type 2 diabetes mellitus without complications; R50.9 Fever, unspecified
CPT/HCPCS: 36415; 80053; 87077; 83036; 85025; 87086; 87186

== ENCOUNTER → 2019-07-01 10:51 | Outpatient (BNVA) | payer MEDICARE, SELFPAY | PROVIDERS: PCP Internal Medicine; Referring Provider Internal Medicine; Visit Provider Surgery | DX: K62.5 Hemorrhage of anus and rectum (principal); F17.210 Nicotine dependence, cigarettes, uncomplicated; I10 Essential (primary) hypertension; E11.9 Type 2 diabetes mellitus without complications; Z79.84 Long term (current) use of oral hypoglycemic drugs; K57.30 Diverticulosis of large intestine without perforation or abscess without bleeding; Z79.82 Long term (current) use of aspirin; Z87.440 Personal history of urinary (tract) infections | CPT/HCPCS: 99202; 99213 ==

== ENCOUNTER 2019-07-13 07:11 | Day surgery (SDC) | payer MEDICARE, SELFPAY ==
[2019-07-13 07:15] VITALS: BP 123/64; PULSE 85; RESP 19; TEMP 36.5; O2SAT 96
[2019-07-13] MEDS: Lactated Ringers 1,000 ML 100 ML IV (07:40)
--- NOTE | 2019-07-13 08:17 | BOWEL_PTH ---
PATIENT: Augusta Holden LOC: [facility] U#:[id number] AGE/SX: 74/F ROOM: RE07/13/[address]: Elsi Womack : 1945 BED: DIS: 07/13/2019 SPEC #: [id number] RECD: 07/13/19 12:30 STATUS: BLANE REQ #: [id number] JEY: 07/13/19 08:[address]: Elsi Womack DEPT: Surgical Specimen RECD BY: Stormy Mayers ENTERED: 07/13/19 12:31 SP TYPE: Bowel OTHR DR: Gina Vega MD Tissues: 1 - BIOPSY BOWEL Procedures: GROSS AND MICRO LEVEL 4 Comments: [id number]
[2019-07-13] MEDS: Endoscopic Tattoo 5 ML SYR IJ (08:30)
--- NOTE | 2019-07-13 08:39 | W.COLOREPORT ---
Date of service: 07/13/19 Time of Service: 08:40 Colonoscopy Report Date of procedure: 07/13/19 Pre-op diagnosis general: rectal bleeding Post-op diagnosis procedure note: other Procedure: CE and polypectomy Surgeon: Elsi Womack Anesthesia proc note operative: GETA Estimated blood loss (mL): 1 Pathology: other Complications: None Disposition: same day Prep: Miralax/Dulcolax Procedure Description: After informed consent was obtained the patient was taken to the procedure room and placed in a left decubitous position. Monitors were applied and a time out was done. The patients name, date of , procedure, allergies to medications and metal in their body was reviewed. The patient was then sedated. Once sedated and comfortable a rectal exam was done. External exam shows a hemorrhoidal tag at the 6 o'clock position. Internal exam revealed a normal sphincter tone and no palpable masses. The scope was then introduced and retrofelexed. internal hemorrhoids tags were identified. The scope was then advanced to the cecum w/out difficulty. The TI and appendiceal orifice were identified. The prep was good. The scope was then slowly retracted over 20 minutes back into the rectum. Polyps were removed at 70. Polyp was 1 cm in size and it was flat. It was marked with Crys ink was also aided in lifting the polyp off the mucosa hot loop was used to remove the polyp in 2 sessions. The defect was closed with 3 endoclips. It is down to muscle. She also has a few small scattered diverticula confined to the sigmoid colon. There is no signs of active infection or bleeding. The scope was removed and the patient was woken up and taken back to Same day surgery in stable condition. The patient tolerated the procedure well and there were no immediate complications. Follow up: The patient should follow up in 3 years-path pd unless they develop changes in bowel habits or other new gastrointestinal complaints.
--- NOTE | 2019-07-13 08:43 | W.PM.DSUDISC ---
Discharge Plan Disposition Patient Disposition: HOME Condition: Good Discharge Details Reason For Visit: colon scope Attending Provider: Elsi Womack Primary Care Provider: Gina Sarmiento Home Meds and New Rx's Prescriptions: New ciprofloxacin HCl [Cipro] 500 mg tablet 500 mg PO Q12H Qty: 10 RF: 0 metronidazole [Flagyl] 500 mg tablet 500 mg PO TID Qty: 21 RF: 0 Continued betamethasone valerate 0.1 % ointment 1 applic TP DAILY PRN (Reason: itching) Qty: 45 RF: 4 glipizide 5 mg tablet 10 mg PO BID Qty: 180 RF: 4 trazodone 50 mg tablet 100 mg PO HS Qty: 180 RF: 4 losartan 25 mg tablet 25 mg PO DAILY Qty: 90 RF: 4 lovastatin 20 mg tablet 20 mg PO DAILY Qty: 90 RF: 4 (DME) Blood Glucose Test Strip 1 ea Miscellaneous BID Qty: 200 RF: 4 aspirin [Aspirin Low-Strength] 81 MG tablet,chewable 81 mg PO DAILY RF: 0 (DME) blood-glucose meter 1 EACH misc 1 ea Miscellaneous ONCE Qty: 1 RF: 0 (DME) lancets 1 EACH misc 1 ea Miscellaneous BID Qty: 200 RF: 4 oxybutynin chloride 5 mg tablet 5 mg PO TID Qty: 270 RF: 4 acetaminophen [Pain and Fever] 500 MG tablet 1,000 mg PO PRN PRNRF: 0 Discharge Instructions Instructions: Low Fiber Diet (GEN) Additional Instructions: Findings:large flat polyp -no asa/nsaid's for 2 wks -abx for 5 days -low fiber diet for the next 72 hrs -yogurt daily for next 30 days Follow up:will send a letter w/ results and when to repeat scope. Please call if you develop: fevers >101.5 Nausea or Vomiting Abdominal pain that is not transient DAY SURGERY UNIT POST COLONOSCOPY INSTRUCTIONS 1. Because there will be medication in your system for the next 24 hours, you may feel a little sleepy. Your coordination will be affected. Therefore: a. Do not drive or operate dangerous equipment for 24 hours. b. Do not drink alcohol beverages for 24 hours (not even beer). c. Plan to go home and rest for the day. 2. Generally there are no restrictions on your activity after a day or so has gone by, but you may feel a bit fatigued for a few days. 3 After you arrive home you may have a light meal and return to a normal diet as you can tolerate it without feeling sick to your stomach. 4. After surgery, you may feel pain or discomfort. This should be only transient, but if it persists please contact your doctor. 5. If there are any questions regarding the findings of your procedure, please feel free to contact your doctor. 6. If you are unable to contact your doctor with a problem, contact the hospital at [phone]. 7. Continue all your regular medications unless directed otherwise. I understand the above instructions and have no questions. Signature of Patient or Responsible Adult Escort Date/Time Name of Responsible Adult Escort Signature of Nurse Date/Time Activity:: see above Diet:: see above Discharge Orders Discharge Orders: Discharge Order (Routine); Ordered 07/13/19 Ordered By: Elsi Womack DS: Diagnosis Discharge Diagnosis (1) Rectal/anal hemorrhage: Status: Acute (2) Adenomatous polyps: Status: Acute
[2019-07-13] MEDS: metroNIDAZOLE 1,000 MG/200 ML BAG 200 MG IVPB (09:08)
[2019-07-13 09:18] VITALS: BP 99/54; PULSE 62; RESP 18; TEMP 36.2; O2SAT 97
[2019-07-13] MEDS: CIPROFLOXACIN 400 MG/200 ML BAG 200 MG IVPB (10:12)
[2019-07-13 10:18] VITALS: BP 102/58; PULSE 59; RESP 17; TEMP 36.1; O2SAT 96
== END 2019-07-13 11:29 | disposition home or self-care (01) ==
PROVIDERS: PCP Internal Medicine; Visit Provider Surgery
PROC: 0DJD8ZZ Inspection of Lower Intestinal Tract, Via Natural or Artificial Opening Endoscopic (ICD-10-PCS; CPT 45378; principal; 2019-07-13 08:00)
DX: K62.5 Hemorrhage of anus and rectum (principal); D12.3 Benign neoplasm of transverse colon; K57.30 Diverticulosis of large intestine without perforation or abscess without bleeding; I10 Essential (primary) hypertension; E11.9 Type 2 diabetes mellitus without complications; Z79.4 Long term (current) use of insulin
CPT/HCPCS: 45385; 45381; 88305; 96365; J0744; J2704

== ENCOUNTER 2019-09-09 03:35 | Outpatient (CLI) | payer MEDICARE, SELFPAY ==
[2019-09-09 08:17] LABS: Bilirubin Negative (Negative); Blood Trace-intact (Negative); Clarity Cloudy (Clear); Glucose 500 mg/dL (Negative); Ketones Negative (Negative); Leukocyte Esterase Small (Negative); Nitrite Positive (Negative); Specific Gravity >= 1.030 (1.005-1.025); Urobilinogen 0.2 EU/dL (Up TO 0.2)
[2019-09-09 08:51] LABS: C & S Indicated? C&S Done As Ordered; WBC >50 HPF (0-5)
== END 2019-09-09 03:55 ==
PROVIDERS: PCP Nurse Practitioner; Visit Provider Family Medicine
DX: R30.0 Dysuria (principal)
CPT/HCPCS: 87077; 81003; 81015; 87086; 87186

== ENCOUNTER 2020-01-07 02:13 | Outpatient (CLI) | payer MEDICARE, SELFPAY ==
--- NOTE | 2020-01-07 12:38 | DI.MAMMO_ITS ---
EXAM: MAMMO SCREENING CLINICAL HISTORY: screening.Z12.39 TECHNIQUE: Mammograms were interpreted according to the usual protocol including computer analysis w [employer] CAD system, tomosynthesis and C-view imaging. COMPARISON: 2014 through 2017 FINDINGS: The breasts are composed of scattered fibroglandular densities, Breast Density category B. No suspicious masses or suspicious microcalcifications are seen. No skin thickening or abnormal axillary lymph nodes are seen. There has been no significant change from prior exams. IMPRESSION: BI-RADS Category 1, Negative mammogram Yearly screening mammography is recommended. Breast Density - Category B, scattered fibroglandular densities. A negative radiographic report should not delay biopsy if a dominant or clinically suspicious mass is present. Up to ten percent of cancers are not identified on mammography. A negative report may reinforce clinical impression. Adenosis and dense breasts may obscure an underlying neoplasm. False positive reports average 6 to 10%. Patient will receive a letter notifying them of these results.
== END 2020-01-07 02:33 ==
PROVIDERS: PCP Nurse Practitioner; Visit Provider Nurse Practitioner
DX: Z12.31 Encounter for screening mammogram for malignant neoplasm of breast (principal); R92.2 Inconclusive mammogram
CPT/HCPCS: 77063; 77067

== ENCOUNTER 2020-06-21 02:07 | Outpatient (CLI) | payer MEDICARE, SELFPAY ==
[2020-06-21 13:06] LABS: Hemoglobin A1C 6.7 % (<5.7)
== END 2020-06-21 02:08 | disposition home or self-care (01) ==
LOC: LOS 02:07
PROVIDERS: PCP Nurse Practitioner; Visit Provider Nurse Practitioner
DX: E11.65 Type 2 diabetes mellitus with hyperglycemia (principal)
CPT/HCPCS: 36415; 83036

== ENCOUNTER 2021-02-13 13:07 | Outpatient (CLI) | payer MEDICARE, SELFPAY ==
[2021-02-13 15:44] LABS: CREATININE 0.9 mg/dL (0.55-1.02); Calculated LDL 98 mg/dL (<100); Cholesterol 157 mg/dL (<200); HDL Cholesterol 43 mg/dL (40-60); Potassium 4.5 mmol/L (3.5-5.1); Triglyceride 82 mg/dL (<150)
[2021-02-13 15:58] LABS: Hemoglobin A1C 6.7 % (<5.7)
== END 2021-02-13 13:08 | disposition home or self-care (01) ==
LOC: LBO 02-14 13:10
PROVIDERS: PCP Nurse Practitioner; Visit Provider Nurse Practitioner
DX: I10 Essential (primary) hypertension (principal); E11.65 Type 2 diabetes mellitus with hyperglycemia
CPT/HCPCS: 36415; 80061; 82565; 83036; 84132

== ENCOUNTER → 2021-02-23 14:21 | Outpatient (BNVA) | payer MEDICARE, SELFPAY | PROVIDERS: PCP Nurse Practitioner; Referring Provider Nurse Practitioner; Visit Provider Physical Therapy Assistant | DX: K62.5 Hemorrhage of anus and rectum (principal); Z86.010 Personal history of colon polyps; E11.9 Type 2 diabetes mellitus without complications; I10 Essential (primary) hypertension; J44.9 Chronic obstructive pulmonary disease, unspecified | CPT/HCPCS: 99214 ==

== ENCOUNTER 2021-02-27 02:24 | Outpatient (CLI) | payer MEDICARE, SELFPAY ==
[2021-02-27 11:10] LABS: Source Nasal/Nares
[2021-02-27 14:11] LABS: COVID-19 PCR Negative (Negative)
== END 2021-02-27 02:25 | disposition home or self-care (01) ==
LOC: LBO 02:25
PROVIDERS: PCP Nurse Practitioner; Visit Provider Surgery
DX: Z20.822 Contact with and (suspected) exposure to COVID-19 (principal)
CPT/HCPCS: 87635

== ENCOUNTER 2021-02-28 08:48 | Day surgery (SDC) | payer MEDICARE, SELFPAY ==
[2021-02-28 09:02] VITALS: BP 122/85; PULSE 86; RESP 17; TEMP 36.5; O2SAT 98
[2021-02-28] MEDS: Lactated Ringers 1,000 ML 80 ML IV (09:13)
--- NOTE | 2021-02-28 09:46 | ANES.PREOP_ITS ---
General Info Date of Service Date Performed: 02/28/21 Height: 4 ft 8 in Weight: 56.1 kg Body Mass Index (BMI): 27.7 Surgical Procedure: Operation Date: 02/28/21 10:05 Proposed Procedures Side Surgeon p Colonoscopy Elsi Womack, Actual Procedures Side Surgeon p Colonoscopy Not Applicable Elsi Womack, DO Meds Allergies and Home Medications Allergies Allergy/AdvReac Type Severity Reaction Status Date / Time hydrocodone bitartrate Allergy Severe hives Verified 02/28/21 09:12 [From Vicodin] phenobarbital Allergy Severe Psychosis Verified 02/28/21 09:12 metformin AdvReac Intermediate diarrhea Verified 02/28/21 09:12 sertraline AdvReac Intermediate Verified 02/28/21 09:12 DOG DANDER Allergy Intermediate THROAT Uncoded 02/28/21 09:12 SWELLING Home Medication Medication Instructions Recorded aspirin [Aspirin Low-Strength] 81 mg PO DAILY tab-cap 10/08/14 blood-glucose meter #1 ea 06/25/16 lancets #200 ea 05/24/17 blood sugar diagnostic #200 strip 01/07/19 blood sugar diagnostic #100 ea 03/11/20 empagliflozin 10 mg tablet 10 mg PO DAILY #30 tab 02/09/21 glipizide 10 mg tablet 10 mg PO BID #180 tab 02/10/21 losartan 50 mg tablet 50 mg PO DAILY #90 tab 02/10/21 lovastatin 20 mg tablet 20 mg PO DAILY #90 tab-cap 02/10/21 oxybutynin chloride 5 mg tablet 5 mg PO TID #270 tab-cap 02/10/21 trazodone 50 mg tablet 100 mg PO HS #180 tab-cap 02/10/21 bisacodyl 5 mg tablet,delayed 5 mg PO ONCE #4 tab 02/23/21 release polyethylene glycol 3350 17 238 g PO ONCE #238 g 02/23/21 gram/dose oral powder Current Visit Medications: Current Medications Generic Name Dose Route Start Last Admin Trade Name Freq PRN Reason Stop Dose Admin Ringer's Solution 1,000 mls @ 80 mls/hr 02/28/21 06:00 02/28/21 09:13 IV 03/29/21 23:59 80 mls/hr INFUSION ANANDA Administration IV Miscellaneous Supplies 1 each 02/28/21 06:00 Iv Access IV 03/29/21 23:59 DIRECTED ANANDA Sodium Chloride 0 ml 02/28/21 06:00 Normal Saline Flush 10 Ml Syr IV 03/29/21 23:59 PRN PRN Sodium Chloride 0 ml 02/28/21 06:00 Normal Saline 10 Ml Vial IJ 03/29/21 23:59 DIRECTED PRN Sterile Water 0 ml 02/28/21 06:00 Water,Injection,Sterile 10 Ml Vial IJ 03/29/21 23:59 DIRECTED PRN PFSH Active Problems Active Problems: Problem Status Onset Code Chronic eczema of hand 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 states she had her lungs checked out of [facility] [place], and pt. said nobody told her anything. Rectal/anal hemorrhage Type II diabetes mellitus with complication, uncontrolled Inactive Surgical History Surgical History History of colonoscopy (~07/13/19) History of tonsillectomy hysterectomy Replacement of total knee joint 07/18/15; RIGHT; DR. TAPIA 2016 Status post left cataract extraction (09/18/05) Status post right cataract extraction (10/16/05) Status post unilateral knee replacement (07/18/15) Tobacco Smoking/Tobacco Use Status: Current every day Tobacco Type: cigarettes and pipe Tobacco: How many years used: 63 Quit Status: not considering quitting Second hand exposure: Yes Counseling given: provider counseling Alcohol Alcohol Intake: current Alcohol intake frequency: a few times a month Alcohol type: beer Substance Use Substance use: Never Substance use type: does not use Vital Signs and Lab Results Vital Signs Most Recent Vital Signs in EMR: Most Recent Vital Signs Temp Pulse Resp BP Pulse Ox 36.5 C 86 17 122/85 98 02/28/21 09:02 02/28/21 09:02 02/28/21 09:02 02/28/21 09:02 02/28/21 09:02 Point of Care Results Point of Care Results: Finger Stick Blood Glucose 124 02/28/21 09:07 Lab Results Blood Type / Crossmatch: No Data to Display Complete Blood Count: No Data to Display Complete Metabolic Panel: Potassium Level 4.5 mmol/L (3.5-5.1) 02/13/21 14:11 02/13/21 Creatinine 0.9 mg/dL (0.55-1.02) 02/13/21 14:11 02/13/21 Estimated GFR/1.73 m2 >= 60.00 (mL/min/1.73m2) 02/13/21 14:11 02/13/21 Hemoglobin A1c 6.7 % (<5.7) H 02/13/21 14:11 02/13/21 Liver Function Panel: No Data to Display Coagulation Panel: No Data to Display Cardiac Panel: No Data to Display Arterial Blood Gas: No Data to Display Venous Blood Gas: No Data to Display Pancreas Panel: No Data to Display Thyroid Panel: No Data to Display Infectious Disease: Coronavirus (COVID-19)(PCR) Negative (Negative) 02/27/21 10:22 02/27/21 Coronavirus 2019 Source Nasal/Nares 02/27/21 10:22 02/27/21 Blood Cultures: No Data to Display Toxicology Panel: No Data to Display Anesthesia Assessment and Plan Anesthesia History Personal History: No History of Anesthesia Complications Family History: No Family History of Anesthesia Complications Exercise Tolerance Exercise Tolerance: Metabolic Equivalents>4 Pertinent Negatives Pertinent Negatives: No Symptoms of GERD Cardiac & Pulmonary Exam Cardiac Exam: Normal S1/S2 Heart Sounds Pulmonary Exam: Clear Bilateral Breath Sounds Airway Exam Known Difficult Airway: No Mallampati Class: 2 Mouth Opening: Normal (> 3cm) Thyromental Distance: Greater than 3 cm Neck Range of Motion: Full ROM Neck Circumference: Normal Teeth Condition: Normal Dentition ASA Classification ASA Score: ASA 3 Emergency Case?: No NPO Status NPO Status: NPO Clears >2 hours, Solids >8 hours Anesthesia Plan Resuscitation Status: Full Code Anesthesia Technique: General Anesthesia Airway Planned: Natural Airway Monitors Used: Standard Monitors
[2021-02-28 09:47] VITALS: BMI 27.7
[2021-02-28 10:22] VITALS: BP 122/92; PULSE 64; RESP 20; TEMP 36; O2SAT 97
--- NOTE | 2021-02-28 10:25 | W.ANESPOSTOP ---
Postoperative Evaluation Date, Time and Location Date Performed: 02/28/21 Time Performed: 10:27 Patient Location: Day Surgery Unit Vital Signs Most Recent Imported Vital Signs: Most Recent Vital Signs Temp Pulse Resp BP Pulse Ox 36.5 C 86 17 122/85 98 02/28/21 09:02 02/28/21 09:02 02/28/21 09:02 02/28/21 09:02 02/28/21 09:02 Most Recent Manually Entered Vital Signs: Adult Blood Pressure: 122/92 Heart Rate: 70 Respirations: 16 Oxygen Saturation (%): 96 Temperature (C): 36 C Pain Score (0-10 Scale): 0 Pain Score Most Recent Pain Score: Most Recent Pain Score Pain Level 0 02/28/21 09:02 Assessment Mental Status: Awake (Alert & Oriented to Patient Baseline) Airway and Respiratory Function: Patent airway with normal (patient baseline) respiratory exam Cardiovascular Function: Hemodynamically Stable Hydration Status: Adequately Hydrated Nausea & Vomiting: No Nausea or Vomiting Pain: Pt. Denies Any Pain Peripheral Nerve Block: Patient did not receive a nerve block
[2021-02-28 10:26] VITALS: BP 122/92; PULSE 70; RESP 16; TEMPC 36; O2SAT 96
--- NOTE | 2021-02-28 10:28 | W.COLOREPORT ---
Colonoscopy Report Date of procedure: 02/28/21 Pre-op diagnosis general: A. polyp.rectal pain & rectal bleeding Post-op diagnosis procedure note: other (diverticula/rectal fissure) Surgeon: Elsi Womack Anesthesia Type: General:No Airway Estimated blood loss (mL): 0 Pathology: none sent Complications: None Prep: Miralax/Dulcolax Retraction Time: 9 Procedure Description: After informed consent was obtained the patient was taken to the procedure room and placed in a left decubitous position. Monitors were applied and a time out was done. The patients name, date of , procedure, allergies to medications and metal in their body was reviewed. The patient was then sedated. Once sedated and comfortable a rectal exam was done. External exam was normal. Internal exam revealed a normal sphincter tone and no palpable masses. She does have a fissure/sentinel pile The scope was then introduced and retrofelexed. No internal hemorrhoids tagas were identified. The scope was then advanced to the cecum w/out difficulty. The TI and appendiceal orifice were identified. The prep was good. She has moderate diverticula confined to the sigmoid colon. There is no signs of active bleeding or infection. The site of the previous polyp at 70 cm was noted by the tattoo. There is no signs of recurrence. There is no signs of any other polyp disease today. The scope was then slowly retracted over 9 minutes back into the rectum. No polyps were visualized on today's exam. The scope was removed and the patient was woken up and taken back to Same day surgery in stable condition. The patient tolerated the procedure well and there were no immediate complications. Follow up: The patient should follow up in 3 years unless they develop changes in bowel habits or other new gastrointestinal complaints. I am going to have her start on a fiber supplement daily. I will have her follow-up in my office in 3 to 4 weeks. If she is still having bleeding and rectal pain then we will consider starting 2% diltiazem gel
--- NOTE | 2021-02-28 10:39 | PDOC.DSDIS_ITS ---
Discharge Plan Disposition Patient Disposition: HOME Condition: Good Discharge Details Reason For Visit: colon scope Attending Provider: Elsi Womack Primary Care Provider: Marilee Park Home Meds and New Rx's Prescriptions: Continued glipizide 10 mg tablet 10 mg PO BID Qty: 180 RF: 4 losartan 50 mg tablet 50 mg PO DAILY Qty: 90 RF: 4 lovastatin 20 mg tablet 20 mg PO DAILY Qty: 90 RF: 4 oxybutynin chloride 5 mg tablet 5 mg PO TID Qty: 270 RF: 4 trazodone 50 mg tablet 100 mg PO HS Qty: 180 RF: 4 (DME) OneTouch Ultra Blue Test Strip Strip See Rx Instructions .ROUTE .MEDSUPPLY Qty: 100 RF: 5 (DME) Blood Glucose Test Strip 1 ea Miscellaneous BID Qty: 200 RF: 4 aspirin [Aspirin Low-Strength] 81 MG tablet,chewable 81 mg PO DAILY RF: 0 (DME) blood-glucose meter 1 EACH misc 1 ea Miscellaneous ONCE Qty: 1 RF: 0 (DME) lancets 1 EACH misc 1 ea Miscellaneous BID Qty: 200 RF: 4 Jardiance 10 mg tablet 10 mg PO DAILY Qty: 30 RF: 11 Discontinued bisacodyl [Dulcolax (bisacodyl)] 5 mg tablet,delayed release (DR/EC) 5 mg PO ONCE Qty: 4 RF: 0 polyethylene glycol 3350 17 gram/dose powder 238 g PO ONCE Qty: 238 RF: 0 Discharge Instructions Additional Instructions: DSU Colonoscopy Post- Op Instructions Instructions for Everyone who is given Anesthesia: For your safety, please do the following for the next twenty-four (24) hours: *Do Not operate a motor vehicle (car, truck, motorcycle, etc.) *Do Not drink alcoholic beverages or use any recreational drugs for the first 24 hours or while taking pain medications. The medications in your body may have a reaction that can be dangerous. *Do Not make any important decisions or sign any important papers. Findings: diverticula rectal fissure/ rectal spasms Follow up: Dr. Womack in 2 wks time 1. No lifting over 20 pounds or strenuous activity for the first 24 hours after your procedure. After 24 hours there are no restrictions on your activity but you may feel fatigued for a few days. 2. After you arrive home you may have a light meal and return to your normal diet as you can tolerate it without feeling sick to your stomach. 3. You may have a bloated, gaseous feeling in your belly (abdomen) after a c olonoscopy. Passing gas and belching will help. Walking or lying down on your left side with your knees flexed may relieve the discomfort. Call the office at [phone] (Office) or [phone] (Hospital) right away if you notice any of the following: a.Vomiting of blood or ?coffee ground stools?. b.Rectal bleeding 1Tbsp, blood clots or continuous bleeding. c.Severe belly (abdominal) pain. d.A hard distended belly (abdomen) and an inability to pass gas. 4. Please don?t expect to have a normal BM (bowel movement) for 2-3 days after your procedure. 5. If there are questions regarding the findings of your procedure, please contact your doctor 6. If you are unable to contact your doctor with a problem, contact the hospital at [phone]. 7. Continue all your regular medications unless directed otherwise. I understand the above instructions and have no questions. Signature of Patient or Adult Escort Name of Responsible Adult Escort Signature of Nurse Date/Time DS: Diagnosis Discharge Diagnosis (1) Diverticula of colon: Status: Acute (2) Essential hypertension: Status: Acute (3) Adenomatous polyps: Status: Acute (4) Tobacco dependence: Status: Chronic (5) Type II diabetes mellitus with complication, uncontrolled: Status: Chronic (6) Chronic rectal fissure: Status: Acute (7) Rectal sphincter spasm: Status: Acute
[2021-02-28 11:19] VITALS: BP 123/84; PULSE 72; RESP 17; TEMP 36.2; O2SAT 97
== END 2021-02-28 11:15 | disposition home or self-care (01) ==
PROVIDERS: PCP Nurse Practitioner; Visit Provider Surgery
PROC: 0DJD8ZZ Inspection of Lower Intestinal Tract, Via Natural or Artificial Opening Endoscopic (ICD-10-PCS; CPT 45378; principal; 2021-02-28 10:00)
DX: K62.5 Hemorrhage of anus and rectum (principal); Z86.010 Personal history of colon polyps; F17.210 Nicotine dependence, cigarettes, uncomplicated; E11.9 Type 2 diabetes mellitus without complications; J44.9 Chronic obstructive pulmonary disease, unspecified; K57.30 Diverticulosis of large intestine without perforation or abscess without bleeding
CPT/HCPCS: 45378; J2001

== ENCOUNTER → 2021-03-15 08:59 | Outpatient (BNVA) | payer MEDICARE, SELFPAY | PROVIDERS: PCP Nurse Practitioner; Referring Provider Nurse Practitioner; Visit Provider Surgery | DX: Z48.815 Encounter for surgical aftercare following surgery on the digestive system (principal); K59.4 Anal spasm; K60.1 Chronic anal fissure | CPT/HCPCS: 99212 ==

== ENCOUNTER → 2021-05-04 13:20 | Outpatient (BNVA) | payer MEDICARE, SELFPAY | PROVIDERS: PCP Nurse Practitioner; Visit Provider Surgery | DX: Z48.815 Encounter for surgical aftercare following surgery on the digestive system (principal); Z86.010 Personal history of colon polyps; K62.5 Hemorrhage of anus and rectum | CPT/HCPCS: 99212; 99213 ==

== ENCOUNTER 2021-06-09 14:31 | Emergency (ER) | payer MEDICARE, SELFPAY ==
--- NOTE | 2021-06-09 14:30 | RT.EKG_ITS ---
APPROVED REPORT Exam: Resting ECG Reason for Exam: DIZZINESS Patient Location: E HR:68 bpm ECG Measurements Heart Rate 68 AXIS ND 170 P 48 QRSd 75 QRS 30 QT 409 T 41 QTc 435 Conclusion Sinus rhythm...normal P axis, V-rate 60- 99
[2021-06-09 14:38] VITALS: BP 156/108; PULSE 78; RESP 16; TEMP 36.2; O2SAT 98
[2021-06-09 14:46] VITALS: RESP 24
[2021-06-09 15:03] VITALS: BP 117/69; PULSE 63; PULSE 64; RESP 15; O2SAT 96
[2021-06-09 15:10] VITALS: PULSE 75; RESP 17; O2SAT 96
--- NOTE | 2021-06-09 15:15 | DI.MRI_ITS ---
Exam(s) MR ANGIO BRAIN WO CLINICAL HISTORY: vertigo, consider cva posterior. TECHNIQUE: Multiplanar multisequence MRA of the brain was performed. COMPARISON: None. FINDINGS: Carotid Arteries: No aneurysm, occlusion or significant stenosis. Anterior Cerebral Arteries: Right: No aneurysm, occlusion or significant stenosis. Left: No aneurysm, occlusion or significant stenosis. Middle Cerebral Arteries: Right: No aneurysm, occlusion or significant stenosis. Left: No aneurysm, occlusion or significant stenosis. Posterior Cerebral Arteries: Right: No aneurysm, occlusion or significant stenosis. Left: No aneurysm, occlusion or significant stenosis. Vertebral Arteries: Right: No aneurysm, occlusion or significant stenosis. Left: No aneurysm, occlusion or significant stenosis. Basilar Artery: No aneurysm, occlusion or significant stenosis. IMPRESSION: 1. Normal MRA examination of the [place]. 2. Results of this exam have been verbally communicated with provider. DATA REPOSITORY:
--- NOTE | 2021-06-09 15:15 | DI.MRI_ITS ---
Exam(s) MR BRAIN WO EXAM: MR BRAIN WO CLINICAL HISTORY: vertigo, consider cva posterior TECHNIQUE: Multiplanar multisequence MRI of the brain was performed. COMPARISON: No exams were available for comparison FINDINGS: VENTRICLES AND EXTRA AXIAL SPACES: Normal in size and morphology for the patient's age. MIDLINE SHIFT: None. CEREBRAL PARENCHYMA: No focus of restricted diffusion to suggest acute infarct. No space-occupying le colt identified. There are areas of hyperintense signal seen in the white matter on the FLAIR and T2 weighted images likely reflecting small vessel ischemic disease. HEMORRHAGE: None. BRAINSTEM/CEREBELLUM: Normal. CALVARIUM: Normal. VISUALIZED PARANASAL SINUSES/MASTOIDS:Clear. [place]: Normal flow void. PIT[place]ARY GLAND: Unremarkable. OTHER FINDINGS: None. IMPRESSION: 1. No evidence of an acute intracranial infarct. 2. Results of this exam have been verbally communicated with provider. DATA REPOSITORY:
--- NOTE | 2021-06-09 15:15 | DI.MRI_ITS ---
Exam(s) MR ANGIO NECK WO EXAM: MR ANGIO NECK WO CLINICAL HISTORY: vertigo, consider cva posterior, pain rt neck. TECHNIQUE: Multiplanar multisequence MRA of the Neck was performed. COMPARISON: No exams were available for comparison FINDINGS: The examination is limited due to patient motion artifact. Common Carotid: Right: No dissection, occlusion or significant stenosis. Left: No dissection, occlusion or significant stenosis. External Carotid: Right: No evidence of occlusion or significant stenosis. Left: No evidence of occlusion or significant stenosis. Internal Carotid: Right: No dissection, occlusion or significant stenosis. Left: No dissection, occlusion or significant stenosis. Vertebral Artery: Right: No dissection, occlusion or significant stenosis. Left: No dissection, occlusion or significant stenosis. The visualized paraspinal soft tissues are unremarkable. IMPRESSION: No evidence of dissection, occlusion or significant stenosis. DATA REPOSITORY:
[2021-06-09 15:31] VITALS: BP 123/40; PULSE 65; PULSE 66; RESP 14; O2SAT 97
--- NOTE | 2021-06-09 16:23 | ED.GENADUL_ITS ---
Discharge Plan Disposition Patient Disposition: HOME Condition: Stable Discharge Details Clinical Impression: Vertigo, Acute UTI Primary Care Provider: Marilee Park ED Provider: Onel Pulido Home Meds and New Rx's Prescriptions: New cephalexin 500 mg capsule 500 mg PO BID Qty: 9 0RF Continued (DME) OneTouch Ultra Blue Test Strip Strip See Rx Instructions .ROUTE .MEDSUPPLY Qty: 100 5RF Rx Instructions: 2 daily (DME) Blood Glucose Test Strip 1 ea Miscellaneous BID Qty: 200 4RF Rx Instructions: FOR ONE TOUCH ULTRA MINI METER. PT DOES NOT USE INSULIN. DIAGNOSIS CODE E11.8 aspirin [Aspirin Low-Strength] 81 MG tablet,chewable 81 mg PO DAILY 0RF (DME) blood-glucose meter 1 EACH misc 1 ea Miscellaneous ONCE Qty: 1 0RF Rx Instructions: FOR ONE TOUCH ULTRA MINI DIAGNOSIS CODE E11.8 (DME) lancets 1 EACH misc 1 ea Miscellaneous BID Qty: 200 4RF Rx Instructions: FOR ONE TOUCH ULTRA MINI METER. NO INSULIN. DIAGNOSIS CODE E11.8 betamethasone dipropionate 0.05 % ointment 1 applic TOPICAL BID 0RF No Action Jardiance 10 mg tablet 10 mg PO DAILY Qty: 30 11RF glipizide 10 mg tablet 10 mg PO BID Qty: 180 4RF losartan 50 mg tablet 50 mg PO DAILY Qty: 90 4RF lovastatin 20 mg tablet 20 mg PO DAILY Qty: 90 4RF meclizine 25 mg tablet 25 mg PO BID PRN (Reason: dizziness) Qty: 30 2RF mirabegron 25 mg tablet extended release 24 hr 25 mg PO DAILY Qty: 30 11RF trazodone 50 mg tablet 100 mg PO HS Qty: 180 4RF Discharge Instructions Instructions: Cephalexin (By mouth), Meclizine (By mouth), Urinary Tract Infection in Women (ED), Vertigo (ED), Fall Prevention for Older Adults (ED) Additional Instructions: Take antibiotic Keflex 500 mg, 1 tablet by mouth twice a day, use provided tablets and then continue after you bean picker your prescription. Take Antivert 25 mg, 1 tablet by mouth twice a day only as needed for dizziness. Please contact your primary care physician to arrange follow-up. Return to the ER immediately for any worsening or new concerning symptoms. Referrals: Marilee Park, LE [Primary Care Provider] - Discharge Data Discharge Date/Time-TO BE ENTERED AT DEPARTURE: 06/09/21 18:26 Medical Decision Making 1600?- 76-year-old female with multiple local problems including history of hypertension, diabetes, COPD, chronic smoker, here with vertigo that started about 4 weeks ago and has progressed. Patient is hypertensive on arrival. I am concerned given rotary nystagmus, difficulty with [id number] as well as difficulty with rapid alternating movements of the upper extremities that she may have posterior circulation cva or mass. Plan to obatin stat MRI brain. Screening EKG was reviewed and interpreted by Dr. Bocanegra: Please see report, nondiagnostic. Consider also urinary tract infection and will obtain urinalysis. 1809--MRI of the brain and MRA of the brain and neck interpreted by radiology: Negative. Labs reviewed and consistent with UTI. Patient reassessed and notes significant improvement after Antivert. Plan to initiate treatment with Keflex and continue Antivert. Usual customary discharge instructions reviewed with the patient. HPI General Mode of arrival: ambulatory . Date/Time Provider Initiated Documentation: 06/09/21 14:44 . Limitations to Documentation: no limitations . Information obtained by: patient . HPI Narrative: 76-year-old female with multiple medical problems including history of COPD, hyp ertension, diabetes, tobacco dependence, here with chief complaint of dizziness. Patient notes sensation of room spinning for the past 4 weeks. Dizziness is moderate to severe and worse with certain positions including sitting up. She does have the dizziness while lying at rest currently. Dizziness has been progressive. She has no associated headache but does note some right posterior neck discomfort. Patient denies associated visual change. No nausea or vomiting. No numbness, tingling or focal weakness. She does note foul-smelling urine over the past 1 to 2 weeks with associated dysuria and sense of incomplete emptying. She is concerned that she may have a urinary tract infection. Related Data Home Medications Medication Instructions Recorded Confirmed aspirin 81 mg chewable tablet 81 mg PO DAILY tab-cap 10/08/14 06/15/21 (Aspirin Low-Strength) blood-glucose meter #1 ea 06/25/16 06/15/21 lancets 28 gauge #200 ea 05/24/17 06/15/21 blood sugar diagnostic (Blood #200 strip 01/07/19 06/15/21 Glucose Test) blood sugar diagnostic (OneTouch #100 ea 03/11/20 06/15/21 Ultra Blue Test Strip) betamethasone dipropionate 0.05 % 1 applic TOPICAL BID 06/09/21 06/15/21 topical ointment cephalexin 500 mg capsule 500 mg PO BID #9 cap 06/09/21 06/15/21 empagliflozin 10 mg tablet 10 mg PO DAILY #30 tab 06/15/21 06/15/21 (Jardiance) glipizide 10 mg tablet 10 mg PO BID #180 tab 06/15/21 06/15/21 losartan 50 mg tablet 50 mg PO DAILY #90 tab 06/15/21 06/15/21 lovastatin 20 mg tablet 20 mg PO DAILY #90 tab-cap 06/15/21 06/15/21 meclizine 25 mg tablet 25 mg PO BID PRN #30 tab 06/15/21 06/15/21 mirabegron 25 mg tablet,extended 25 mg PO DAILY #30 tab 06/15/21 06/15/21 release 24 hr trazodone 50 mg tablet 100 mg PO HS #180 tab-cap 06/15/21 06/15/21 Previous Rx's Medication Instructions Recorded lancets 28 gauge #200 ea 05/24/17 blood sugar diagnostic (Blood #200 strip 01/07/19 Glucose Test) blood sugar diagnostic (OneTouch #100 ea 03/11/20 Ultra Blue Test Strip) cephalexin 500 mg capsule 500 mg PO BID #9 cap 06/09/21 empagliflozin 10 mg tablet 10 mg PO DAILY #30 tab 06/15/21 (Jardiance) glipizide 10 mg tablet 10 mg PO BID #180 tab 06/15/21 losartan 50 mg tablet 50 mg PO DAILY #90 tab 06/15/21 lovastatin 20 mg tablet 20 mg PO DAILY #90 tab-cap 06/15/21 meclizine 25 mg tablet 25 mg PO BID PRN #30 tab 06/15/21 mirabegron 25 mg tablet,extended 25 mg PO DAILY #30 tab 06/15/21 release 24 hr trazodone 50 mg tablet 100 mg PO HS #180 tab-cap 06/15/21 Allergies Allergy/AdvReac Type Severity Reaction Status Date / Time hydrocodone bitartrate Allergy Severe hives Verified 06/15/21 11:51 [From Vicodin] phenobarbital Allergy Severe Psychosis Verified 06/15/21 11:51 metformin AdvReac Intermediate diarrhea Verified 06/15/21 11:51 sertraline AdvReac Intermediate Verified 06/15/21 11:51 DOG DANDER Allergy Intermediate THROAT Uncoded 06/15/21 11:51 SWELLING General Stated Complaint: Dizzy/Sync LACHELLE: 3 Review of Systems All systems reviewed & are unremarkable except as noted in HPI and below Cardiovascular Cardiovascular: Denies chest pain Respiratory Respiratory: Denies cough PFSH All Active Problems (Updated 06/15/21 @ 12:06 by Marilee Park NP) Vertigo (Acute) Rectal sphincter spasm (Acute) Chronic rectal fissure (Acute) Chronic eczema of hand (Acute) Type II diabetes mellitus with complication, uncontrolled (Chronic) Inactive Tobacco dependence (Chronic) 02/16- agrees to yearly CT screening for lung CA Adenomatous polyps (Acute) Essential hypertension (Acute) Heart murmur (Acute 07/05/16) Psoriasis (Chronic) COPD (chronic obstructive pulmonary disease) (Chronic) 02/16- not on meds Mitral valve regurgitation (Chronic) Diverticula of colon (Acute) Medical History Cataract, right eye (09/18/05) surgically repaired Current smoker History of COPD Pt. states she had her lungs checked out of [facility], and pt. said nobody told her anything. Rectal/anal hemorrhage Surgical History History of colonoscopy (~07/13/19) History of colonoscopy (~02/28/21) History of tonsillectomy hysterectomy Replacement of total knee joint 07/18/15; RIGHT; DR. TAPIA 2017 Status post left cataract extraction (09/18/05) Status post right cataract extraction (10/16/05) Status post unilateral knee replacement (07/18/15) Family History Mother Emphysema lung Father No problems noted. Brother No problems noted. Social History Smoking/Tobacco Use Status: Current every day Tobacco Type: cigarettes and pipe Tobacco: How many years used: 63 Quit status: not considering quitting Second Hand Exposure: Yes Counseling given: provider counseling Smoking risk assessment performed?: Yes Alcohol Intake: current Alcohol Intake frequency: a few times a month Alcohol type: beer Drug use: Never Substance use type: does not use Do you feel safe at home: Yes Do you feel safe in your relationship?: Yes Exam Const General: cooperative and no acute distress HENMT Head: normocephalic and atraumatic Mouth: moist mucous membranes Eyes Conjunctivae: normal conjunctivae Sclera: normal sclerae EOM: nystagmus Neck Neck: trachea midline and supple Resp Auscultation: clear to auscultation bilaterally, no rales, no rhonchi and no wheezes Cardio Jugular venous pressure: no JVD Rate: regular rate and not tachycardic Rhythm: regular rhythm GI Palpation: soft, not firm, no guarding, no masses, not rigid and nontender Skin General skin exam: no rashes or lesions noted Neuro General: patient alert, patient awake, patient oriented x3 and tone normal Cranial Nerves: PERRL, facial strength normal, able to elevate shoulders bilaterally and nystagmus rotary Cognition: normal cognition Speech: speech normal Motor: strength 5/5 throughout Sensory Exam: no sensory deficits noted Coordination: [id number] test normal, [id number] test normal (Difficulty with left heel on bach), Romberg test normal and rapid alternating movement UE normal (Abnormal) Extrem General: no edema Psych Appearance: grossly normal Mental Status: mental status grossly normal Speech and Movement: speech and movement normal Course Vital Signs Vital signs: Vital Signs Temperature 36.2 C L 06/09/21 14:38 Pulse 78 06/09/21 14:38 Respiratory Rate 16 06/09/21 14:38 Blood Pressure 156/108 H 06/09/21 14:38 Pulse Oximetry 98 06/09/21 14:38 Temperature 36.2 C L 06/09/21 14:38 Temperature Source Skin 06/09/21 14:38 Pulse 64 06/09/21 15:03 Pulse 75 06/09/21 15:10 Respiratory Rate 17 06/09/21 15:10 Respiratory Effort Non-Labored 06/09/21 14:46 Respiratory Depth Normal 06/09/21 14:46 Respiratory Pattern Normal 06/09/21 14:46 Blood Pressure 117/69 06/09/21 15:03 Blood Pressure Mean 72 06/09/21 15:03 Blood Pressure Position Supine 06/09/21 14:38 Pulse Oximetry 96 06/09/21 15:10 Oxygen Delivery Method Room Air 06/09/21 14:38 Oxygen Flow Rate 0 06/09/21 14:38 Pain Level 0 06/09/21 14:38 PAWSS Have you Been Recently Intoxicated or Drunk Within the Last 30 days?: No Have you Ever Experienced Previous Episodes of Alcohol Withdrawal?: No Have you ever Experienced Withdrawal Seizures?: No Have you ever Experienced Delirium Tremens(DT)s?: No Have you ever undergone Alcohol Rehabilitation Treatment (i.e, inpt ot outpatient treatment programs)?: No Have you ever Experienced Blackouts?: No Have you ever Combined Alcohol with other Downers within the last 90 days?: No Have you ever Combined Alcohol with any other Substance of Abuse during the last 90 days?: No Positive Blood Alcohol level on Presentation? [PCS.BAL]: No Evidence of Increased Autonomic Activity (i.e. HR>120, tremor, sweating, agitation, nausea)?: No Result: 0
[2021-06-09] MEDS: Meclizine 25 MG TAB PO (16:54)
[2021-06-09 17:02] LABS: Abs Immature Grans 0.02 10^3/uL (0.0-0.06); Absolute Basophil Count 0.04 10^3/uL (0.0-0.2); Absolute Eosinophil Count 0.12 10^3/uL (0.0-0.7); Absolute Lymphocyte Count 1.38 10^3/uL (1.2-3.4); Absolute Monocyte Count 0.47 10^3/uL (0.1-0.8); Absolute Neutrophil Count 4.82 10^3/uL (1.2-6.7); Basophils % 0.6; Eosinophils % 1.8; HCT 40.9 % (36.0-46.0); HGB 13.4 g/dL (11.2-15.7); Immature Grans % 0.3; Lymphocytes % 20.1; MCH 30.7 pg (27.0-33.0); MCHC 32.8 % (32.0-36.0); MCV 93.8 fL (80-95); MPV 10.4 fL (8.0-11.0); Monocytes % 6.9; Neutrophils % 70.3; Nucleated RBC 0 %; Platelet Count 191 10^3/uL (130-400); RBC 4.36 10^6/uL (3.93-5.22); RDW 12.9 % (11.7-14.6); RDW-SD 44.1 fL; WBC 6.85 10^3/uL (4.4-10.8)
[2021-06-09 17:07] LABS: Bilirubin Negative (Negative); Blood Trace-intact (Negative); Clarity Sl Cloudy (Clear); Glucose >=1000 mg/dL (Negative); Ketones Negative (Negative); Leukocyte Esterase Negative (Negative); Nitrite Positive (Negative); Urobilinogen 0.2 EU/dL (Up TO 0.2)
[2021-06-09 17:13] LABS: ALT 14 U/L (14-59); AST 8 U/L (15-37); Albumin 3.7 g/dL (3.4-5.0); Alkaline Phosphatase 70 U/L (46-116); Anion Gap 7.3 mmol/L (3-11); BUN 19 mg/dL (7-18); Bilirubin, Total 0.2 mg/dL (0.2-1.0); CO2 25.7 mmol/L (21.0-32.0); CREATININE 0.8 mg/dL (0.55-1.02); Calcium 8.8 mg/dL (8.5-10.1); Chloride 110 mmol/L (98-107); Glucose 73 mg/dL (74-106); Magnesium 2.1 mg/dL (1.8-2.4); Potassium 3.7 mmol/L (3.5-5.1); Sodium 143 mmol/L (136-145); Total Protein 7.1 g/dL (6.4-8.2)
[2021-06-09 17:31] LABS: Bacteria Many HPF (Negative); C & S Indicated? Yes; Casts Negative LPF (Negative); Crystals Negative HPF (Negative); Epithelial Cells Negative HPF (Negative); Mucus Negative (Negative); Other Cells Negative (Negative); RBC Negative HPF (0-2); WBC >50 HPF (0-5)
[2021-06-09] MEDS: Cephalexin 500 MG CAP PO (18:00)
[2021-06-09 18:27] VITALS: BP 123/40; PULSE 66; RESP 14; TEMP 36.2; O2SAT 97
[2021-06-09] MEDS: Meclizine 25 MG TAB 50 MG PO (18:27)
[2021-06-09] MEDS: Cephalexin 500 MG CAP, 4 CAPS/BTL PO (18:27)
== END 2021-06-09 18:26 | disposition home or self-care (01) ==
PROVIDERS: Emergency Provider Student in an Organized Health Care Education/Training Program; PCP Nurse Practitioner
DX: N39.0 Urinary tract infection, site not specified (principal); B96.20 Unspecified Escherichia coli [E. coli] as the cause of diseases classified elsewhere; R42 Dizziness and giddiness; M54.2 Cervicalgia; E11.9 Type 2 diabetes mellitus without complications
CPT/HCPCS: 36415; 70544; 70547; 80053; 82962; 87077; 93005; 99285; 70551; 81003; 81015; 83735; 85025; 87086; 87186; 93010; 99284

== ENCOUNTER 2021-08-11 18:37 | Outpatient (REF) | payer MEDICARE, SELFPAY | END 2021-08-11 18:38 | disposition home or self-care (01) | LOC: LBN 18:37 | PROVIDERS: PCP Nurse Practitioner; Visit Provider Nurse Practitioner | DX: N76.0 Acute vaginitis (principal) | CPT/HCPCS: 87480; 87510; 87660 ==

== ENCOUNTER → 2021-09-01 01:22 | Outpatient (CLI) | payer MEDICARE, SELFPAY ==
--- NOTE | 2021-09-01 08:15 | DI.MAMMO_ITS ---
Exam(s) MAMMO SCREENING EXAM: MAMMO SCREENING CLINICAL HISTORY: screening,Z12.39. TECHNIQUE: Bilateral full field digital CC and MLO mammographic images were obtained with 3D tomosyn thesis and utilizing computer aided detection (CAD). COMPARISON: Prior mammograms were reviewed, the most recent being December 2019.. Family history. Her sister diagnosed with breast cancer at age 50. FINDINGS: There has been no significant change in the appearance and distribution of the fibroglandular tissue. There are no new spiculated masses nor malignant appearing microcalcification groups. There is no significant architectural distortion nor skin thickening-retraction. IMPRESSION: No radiographic evidence of malignancy. BI-RADS Category 1 - Negative Breast Density - Category B - Scattered areas of fibroglandular density Breast density Category C or D implies that the patient has dense breast tissue. Dense breast tissue can make it harder to find cancer on a mammogram. Dense breast tissue is also associated with an incr eased risk of breast cancer. This information about the result of the mammogram report was provided to the patient to raise their awareness. Use this report when you speak with the patient about their risks for breast cancer, which includes their family history. At that time, you may recommend additional screening tests (Ultrasoun d or MRI) as these tests may add significant information. A negative radiographic report should not delay biopsy if a dominant or clinically suspicious mass is present. Up to ten percent of cancers are not identified on mammography. A negative report may reinforce clinical impression. Adenosis and dense breasts may obscure an underlying neoplasm. False positive reports average 6 to 10%. Patient will receive a letter notifying them of these results.
--- NOTE | 2021-09-01 08:15 | DI.DEXA_ITS ---
Exam(s) XR DEXA BONE DENSITY W/WO YOGI EXAM: XR DEXA BONE DENSITY W/WO YOGI CLINICAL HISTORY: SCREENING FOR OSTEOPOROS IN POSTMENOPAUSAL WOMAN,Z78.0 TECHNIQUE: Routine DEXA evaluation of the lumbar spine, hip, or forearm. COMPARISON: No exams were available for comparison FINDINGS: Performed on a Hologic unit. Lateral image: No compression fracture evident. Lumbar Spine total T-score: -1.7 Hip total T-score:-2.5 Independent reading at the level of the femoral neck yields at T-score of -3.0. Forearm total T-score: -3.3 IMPRESSION: Bone mineral density measures in the osteoporosis range. Fracture risk is high. Note: Any spine fracture indicates 5x risk for subsequent spine fracture and 2x risk for subsequent h ip fracture. World Health Organization criteria for BMD interpretation classify patients: Normal...... T- Score at or above -1.0 Osteopenic... T- Score between -1.0 and -2.5 Osteoporosis... T-Score at or below -2.5
== END ==
PROVIDERS: PCP Nurse Practitioner; Visit Provider Nurse Practitioner
DX: Z12.31 Encounter for screening mammogram for malignant neoplasm of breast (principal); Z80.3 Family history of malignant neoplasm of breast; M81.0 Age-related osteoporosis without current pathological fracture; Z78.0 Asymptomatic menopausal state
CPT/HCPCS: 77063; 77067; 77080

== ENCOUNTER 2022-05-15 20:48 | Outpatient (REF) | payer MEDICARE, SELFPAY ==
[2022-05-15 21:44] LABS: COMMENT (LAB VIEW ONLY) 39.45 mg/dL; Microalb ug/mg Crea 37.5 ug/mg Cr
== END 2022-05-15 20:49 | disposition home or self-care (01) ==
LOC: LBN 20:48
PROVIDERS: PCP Nurse Practitioner Family; Visit Provider Nurse Practitioner Family
DX: E11.8 Type 2 diabetes mellitus with unspecified complications (principal); I10 Essential (primary) hypertension; E66.8 Other obesity
CPT/HCPCS: 82043; 82570

== ENCOUNTER 2022-08-15 03:10 | Outpatient (CLI) | payer MEDICARE, SELFPAY ==
[2022-08-15 13:59] LABS: Hemoglobin A1C 7.2 % (<5.7)
== END 2022-08-15 03:11 | disposition home or self-care (01) ==
LOC: LBO 03:10
PROVIDERS: PCP Nurse Practitioner Family; Visit Provider Nurse Practitioner Family
DX: E11.9 Type 2 diabetes mellitus without complications (principal)
CPT/HCPCS: 36415; 83036

== ENCOUNTER 2023-01-31 04:58 | Outpatient (CLI) | payer MEDICARE, SELFPAY ==
[2023-01-31 13:00] LABS: HCT 40.8 % (36.0-46.0); HGB 13.8 g/dL (11.2-15.7); MCH 31.2 pg (27.0-33.0); MCHC 33.8 % (32.0-36.0); MCV 92 fL (80-95); MPV 10.9 fL (8.0-11.0); Platelet Count 220 10^3/uL (130-400); RBC 4.43 10^6/uL (3.93-5.22); RDW 12.7 % (11.7-14.6); RDW-SD 42.5 fL; WBC 6.83 10^3/uL (4.4-10.8)
[2023-01-31 13:36] LABS: Hemoglobin A1C 7.3 % (<5.7)
[2023-01-31 13:56] LABS: Anion Gap 10.6 mmol/L (3-11); BUN 16 mg/dL (7-18); CO2 27.4 mmol/L (21.0-32.0); CREATININE 0.8 mg/dL (0.55-1.02); Calculated LDL 105 mg/dL (<100); Chloride 101 mmol/L (98-107); Cholesterol 169 mg/dL (<200); Estimated GFR 76.79 (mL/min/1.73m2); Glucose 181 mg/dL (74-106); HDL Cholesterol 48 mg/dL (40-60); Potassium 3.9 mmol/L (3.5-5.1); Sodium 139 mmol/L (136-145); TSH (W/Ref FT4) 1.56 uIU/mL (0.36-3.74); Triglyceride 82 mg/dL (<150)
== END 2023-01-31 04:59 | disposition home or self-care (01) ==
LOC: LBO 04:58
PROVIDERS: PCP Nurse Practitioner Family; Visit Provider Nurse Practitioner Family
DX: E11.65 Type 2 diabetes mellitus with hyperglycemia (principal); E11.8 Type 2 diabetes mellitus with unspecified complications; F17.200 Nicotine dependence, unspecified, uncomplicated; G47.00 Insomnia, unspecified; I10 Essential (primary) hypertension; J44.9 Chronic obstructive pulmonary disease, unspecified; Z00.00 Encounter for general adult medical examination without abnormal findings; E11.9 Type 2 diabetes mellitus without complications
CPT/HCPCS: 36415; 80048; 80061; 85027; 83036; 84443

== ENCOUNTER → 2023-02-26 01:15 | Outpatient (CLI) | payer MEDICARE, SELFPAY ==
--- NOTE | 2023-02-26 09:00 | DI.CTLCSR_ITS ---
Exam(s) CT CHEST LUNG CANCER SCREEN EXAM: CT CHEST LUNG CANCER SCREEN CLINICAL HISTORY: Screening for lung cancer, F17.210, current smoker TECHNIQUE: Imaging Protocol: Axial computed tomography images with coronal and sagittal reformatted images were created and reviewed COMPARISON: CT CHEST FOR PULMONARY EMBOLUS from 07/04/2016 FINDINGS: Tracheobronchial tree: Patent where visualized. Pulmonary parenchyma: No consolidation or dominant measurable mass. There is scarring in the right mi ddle lobe and left lingula. Lung Nodules: There is a 6 mm nodule in the medial aspect of the right lower lobe. Mediastinum and Jenny: No dominant adenopathy or fluid collection. The esophagus is unremarkable. Thyroid gland: Unremarkable. Lymph nodes: Unremarkable. Pleura: No effusion or pneumothorax. Heart: The heart is not dilated. Mild coronary artery calcification is present. No pericardial effus ion. Aorta: Thoracic aorta non-dilated.Atherosclerosis is present. Upper abdomen: Unremarkable. Soft Tissues: Unremarkable. Bones: Within normal limits. IMPRESSION: 6 mm right lower lobe pulmonary nodule. Lung RADS Cat 4A - Suspicious: Findings for which additional diagnostic testing and/or tissue samplin g recommended Lung-RADS 1.0 CATEGORIES: Category 0 - Prior chest CT exam(s) being located for comparison. Category 1 - Annual screening in 12 months. No nodules or definitely benign nodules. Category 2 - Annual screening in 12 months. Benign appearance. Nodules with low likelihood of becomin g active cancer. Category 3 - 6-month follow-up. Probably benign. Short-term follow-up suggested. Nodules with low lik elihood of becoming active cancer. Category 4A - 3-month follow-up and CT/PET if >8 mm in size. Suspicious finding. Findings which requi re additional testing. Category 4B - Findings which require additional testing and tissue sampling. Suspicious finding. Category 4X - Category 3 or 4 nodules with additional features or imaging findings that increases the suspicion of malignancy. Modifier S- Potentially clinically significant finding. (Non lung cancer) RADIATION DOSE DELIVERED: Total DLP Total DLP DATA REPOSITORY: All CT scans at this facility are submitted to the National Radiology Data Registry (NRDR) Dose Index Registry (DIR) with the [employer] (ACR). RADIATION OPTIMIZATION: All CT scans at this facility use at least one of these dose optimization te chniques: automated exposure control; mA and/or kV adjustment per patient size (includes targeted exa ms where dose is matched to clinical indication); or iterative reconstruction.
--- NOTE | 2023-02-26 09:00 | DI.MAMMO_ITS ---
Exam(s) MAMMO SCREENING EXAM: MAMMO SCREENING CLINICAL HISTORY: screening, Z12.39 TECHNIQUE: Bilateral full field digital CC and MLO mammographic images were obtained with 3D tomosyn thesis and utilizing computer aided detection (CAD). COMPARISON: Available for comparison. FINDINGS: Masses/Architectural Distortion: None seen. Microcalcifications: No suspicious pleomorphic-type are seen. Skin Thickening/Nipple Retraction: None. IMPRESSION: 1. No significant interval change with no specific features of malignancy noted. 2. Unless there is more urgent need, screening mammography is recommended, as per [employer] guidelines. BI-RADS Category 1 - Negative Breast Density - Category B - Scattered areas of fibroglandular density Breast density category C or D implies that the patient has dense breast tissue. Dense breast tissue is very common and is not abnormal but dense breast tissue can make it harder to find cancer on a ma mmogram. Also, dense breast tissue may increase their breast cancer risk. This information about the result of the mammogram report was provided to the patient to raise their awareness. Use this report when you speak with the patient about their risks for breast cancer, which includes their family hist ory. At that time, you may recommend for more screening tests (Ultrasound or MRI) as they might be us eful based on their risk. A negative radiographic report should not delay biopsy if a dominant or clinically suspicious mass is present. Up to ten percent of cancers are not identified on mammography. A negative report may reinforce clinical impression. Adenosis and dense breasts may obscure an underlying neoplasm. False positive reports average 6 to 10%. Patient will receive a letter notifying them of these results.
--- NOTE | 2023-02-26 09:00 | DI.RAD_ITS ---
Exam(s) XR CERVICAL SPINE COMP 4-5V EXAM: XR CERVICAL SPINE COMP 4-5V CLINICAL HISTORY: neck pain, tingling in fingers, M54.2. TECHNIQUE: 2D digital imaging was performed. Seven images were obtained. AP, odontoid, lateral and b ilateral oblique images were obtained. COMPARISON: No exams were available for comparison FINDINGS: The odontoid is intact. The lateral masses are well aligned. There is normal alignment of the cervi lyle spine. The bones are osteopenic. There is disc space narrowing at C5-6 and C6-C7. Endplate ost eophytes are seen at several disc levels, particularly at C5-C6. There are degenerative changes of t he facets present. No acute fracture or subluxation is present. There is mild narrowing of the neura l foramen at several levels. The cervical thoracic junction is well maintained. The prevertebral so ft tissues are unremarkable. Lung apices are clear. IMPRESSION: Multilevel degenerative changes in the cervical spine. DATA REPOSITORY: RADIATION DOSE DELIVERED:
== END ==
PROVIDERS: PCP Nurse Practitioner Family; Visit Provider Nurse Practitioner Family
DX: Z12.31 Encounter for screening mammogram for malignant neoplasm of breast (principal); M50.322 Other cervical disc degeneration at C5-C6 level; E11.9 Type 2 diabetes mellitus without complications; F17.210 Nicotine dependence, cigarettes, uncomplicated; Z12.2 Encounter for screening for malignant neoplasm of respiratory organs
CPT/HCPCS: 71271; 77063; 77067; 72050

== ENCOUNTER → 2023-05-14 10:50 | Outpatient (CLI) | payer MEDICARE, SELFPAY ==
--- NOTE | 2023-05-14 14:09 | DI.RAD_ITS ---
Exam(s) XR WRIST RT COMPL NAVICULAR EXAM: XR WRIST RT COMPL NAVICULAR CLINICAL HISTORY: right wrist pain M25.531 PAIN RT WRIST. TECHNIQUE: 2D digital imaging was performed. Three views. COMPARISON: No exams were available for comparison FINDINGS: BONES: No acute fracture is present. No bony destructive lesion is seen. JOINTS: The carpal bones are normally aligned. Advanced degenerative changes are noted at the 1st c arpal metacarpal joint, with loss of joint space and periarticular spurring. SOFT TISSUE: Normal. 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
== END ==
PROVIDERS: PCP Nurse Practitioner Family; Visit Provider Nurse Practitioner Family
DX: M18.11 Unilateral primary osteoarthritis of first carpometacarpal joint, right hand (principal)
CPT/HCPCS: 73110

== ENCOUNTER → 2023-07-01 09:08 | Outpatient (BNVA) | payer MEDICARE, SELFPAY | PROVIDERS: PCP Nurse Practitioner Family; Referring Provider Nurse Practitioner Family; Visit Provider Student in an Organized Health Care Education/Training Program | DX: M18.11 Unilateral primary osteoarthritis of first carpometacarpal joint, right hand (principal); E11.9 Type 2 diabetes mellitus without complications; F17.210 Nicotine dependence, cigarettes, uncomplicated | CPT/HCPCS: 99213 ==

== ENCOUNTER → 2023-09-11 02:54 | Outpatient (CLI) | payer MEDICARE, SELFPAY ==
--- NOTE | 2023-09-11 07:30 | DI.CT_ITS ---
Exam(s) CT CHEST WO EXAM: CT CHEST WO CLINICAL HISTORY: 6 month follow up,solitary pulmonary nodule,r91.1. TECHNIQUE: Imaging protocol: Axial computed tomography images were obtained and coronal and sagittal reformatted images were created and reviewed. COMPARISON: CT CT CHEST LUNG CANCER SCREEN from 02/26/2023 FINDINGS: The examination is limited due to patient motion artifact. There is no bronchiectasis. Tracheobronchial tree: Patent where visualized. Pulmonary parenchyma: No consolidation or dominant measurable mass. No architectural distortion. Ther e is a stable 6 mm nodule in the medial aspect of the right lower lobe (series 3, image 257). Mediastinum and Jenny: No dominant adenopathy or fluid collection. The esophagus is unremarkable. Thyroid gland: Unremarkable. Pleura: No effusion or pneumothorax. Heart: The heart is not dilated. Coronary artery calcifications are present. No pericardial effusion . Aorta: Thoracic aorta non-dilated. Atherosclerotic calcifications are present. Upper abdomen: Unremarkable. Lymph nodes: Within normal limits. Soft tissues: Unremarkable. Bones:Within normal limits for the patient's age. IMPRESSION: 1. Stable 6 mm pulmonary nodule. No new pulmonary nodules. 2. No acute pulmonary process. RADIATION DOSE DELIVERED: 451.81mGy.cm Total DLP 451.81mGy.cm Total DLP DATA REPOSITORY: All CT scans at this facility are submitted to the National Radiology Data Registry (NRDR) Dose Index Registry (DIR) with the [employer] ([employer]). RADIATION OPTIMIZATION: All CT scans at this facility use at least one of these dose optimization te chniques: automated exposure control; mA and/or kV adjustment per patient size (includes targeted exa ms where dose is matched to clinical indication); or iterative reconstruction.
== END ==
PROVIDERS: PCP Nurse Practitioner Family; Visit Provider Nurse Practitioner Family
DX: R91.1 Solitary pulmonary nodule (principal)
CPT/HCPCS: 71250; J1010

== ENCOUNTER → 2024-02-19 12:51 | Outpatient (BNVA) | payer MEDICARE, SELFPAY | PROVIDERS: PCP Nurse Practitioner Family; Referring Provider Nurse Practitioner Family; Visit Provider Psychiatry & Neurology Neurology | DX: M54.2 Cervicalgia (principal); G25.0 Essential tremor | CPT/HCPCS: 99215 ==

== ENCOUNTER 2024-03-03 01:08 | Outpatient (CLI) | payer MEDICARE, SELFPAY ==
--- NOTE | 2024-03-03 07:30 | DI.MAMMO_ITS ---
Exam(s) MAMMO SCREENING EXAM: MAMMO SCREENING CLINICAL HISTORY: screening,z12.39 TECHNIQUE: Bilateral full field digital CC and MLO mammographic images were obtained with 3D tomosyn thesis and utilizing computer aided detection (CAD). COMPARISON: Available for comparison. FINDINGS: Masses/Architectural Distortion: None seen. Microcalcifications: No suspicious pleomorphic-type are seen. Skin Thickening/Nipple Retraction: None. IMPRESSION: 1. No significant interval change with no specific features of malignancy noted. 2. Unless there is more urgent need, screening mammography is recommended, as per [employer] guidelines. BI-RADS Category 1 - Negative Breast Density - Category B - Scattered areas of fibroglandular density Breast density category C or D implies that the patient has dense breast tissue. Dense breast tissue is very common and is not abnormal but dense breast tissue can make it harder to find cancer on a ma mmogram. Also, dense breast tissue may increase their breast cancer risk. This information about the result of the mammogram report was provided to the patient to raise their awareness. Use this report when you speak with the patient about their risks for breast cancer, which includes their family hist ory. At that time, you may recommend for more screening tests (Ultrasound or MRI) as they might be us eful based on their risk. A negative radiographic report should not delay biopsy if a dominant or clinically suspicious mass is present. Up to ten percent of cancers are not identified on mammography. A negative report may reinforce clinical impression. Adenosis and dense breasts may obscure an underlying neoplasm. False positive reports average 6 to 10%. Patient will receive a letter notifying them of these results.
--- NOTE | 2024-03-03 12:30 | DI.US_ITS ---
APPROVED REPORT EXAM: Comprehensive 2D, Doppler, and color-flow Echocardiogram Patient Location: Out-Patient Coat Presser: Lacey Cody RDCS (AE) Indications: Monitoring mitral regurgitation, Heart murmur Other Information Study Quality: Adequate. Technically limited study due to body habitus, smoker. Conclusion Normal left ventricular wall thickness and chamber size. Ejection fraction is 55%. Wall motion is n ormal Normal right ventricular size and function Left atrium is mildly dilated. Right atrial size is normal Aortic valve is sclerotic without stenosis or regurgitation Mitral annular calcification. Trace mitral regurgitation Normal tricuspid valve with trace regurgitation. Estimated right ventricular systolic pressure is 25 mmHg Wall motion Left Ventricle Technically limited parasternal imaging. The overall left ventricular systolic function appears hitesh l. There is normal LV segmental wall motion. There is no ventricular septal defect visualized. LVEF i s 55%. Right Ventricle The right ventricle is normal size. The right ventricular systolic function is normal. Atria The left atrium is mildly dilated The right atrium size is normal. The interatrial septum is intact w ith no evidence for an atrial septal defect. Aortic Valve The Aortic valve is sclerotic. Number of aortic valve leaflets could not be kyle assessed. There is n o aortic valvular stenosis. No aortic regurgitation is present. Mitral Valve Mild mitral annular calcification. No evidence of mitral valve stenosis. Trace mitral regurgitation. Tricuspid Valve The tricuspid valve is normal in structure. There is no tricuspid valve stenosis. Trace tricuspid reg urgitation. The RVSP is 25.4 mmHg. Pulmonic Valve The pulmonary valve is normal in structure. There is no pulmonic valvular stenosis. There is no pulmo vinayak valvular regurgitation. Great Vessels The aortic root is normal in size. The ascending aorta is normal in size. Aortic arch is not well vis ualized. IVC is normal in size and collapses >50% with inspiration. Pericardium There is no pericardial effusion. 2D Dimensions Ao Root d 2.45 cm F: 2.7 - 3.3 Ao Asc Diam d 2.47 cm F: 2.3 - 3.1 Auto EF LV EDV A4C 59.1 mL LV EDV A2C 59.9 mL LV EDV BP 59.5 mL LV ESV A4C 26.9 mL LV ESV A2C 26.1 mL LV ESV BP 26.8 mL LVEF(%) A4C 54.4 % LVEF(%) A2C 56.4 % LVEF(%) BP 55.0 % LV SV A4C 32.2 ml LV SV A2C 33.8 ml LV SV BP 32.8 ml LV CO A4C 2.2 L/min LV CO A2C 2.2 L/min LV CO BP 2.2 L/min HR A4C 69.37 BPM HR A2C 66.18 BPM LV EDV Index (BP) LA Volume LA Length A4C 4.7 cm LA Length A2C 4.7 cm LA Area A4C s 12.50 cm2 LA Area A2C s 12.42 cm2 LA Vol A4C A-L 28.01 mL LA Vol A2C A-L 28.03 mL LA Vol Biplane A-L 28.2 mL LA Vol/BSA A4C A-L LA Vol/BSA A2C A-L LA Vol/BSA BP A-L 19.1 mL/m2 LA Vol A4C MOD 26.5 mL LA Vol A2C MOD 26.6 mL LA Vol BP MOD 26.7 mL RA Volume RA Area A4C 8.0 cm2 RA ESV A4C (A-L) 13.5mL RA Vol/BSA A4C A-L RA Length A4C 4.0 cm RA ESV A4C (MOD) 13.2mL LV Diastology MV E Vmax 1.19 (0.4-1.3 m/s) MV A Vmax 1.35 (0.4-1.3 m/s) E/A Ratio 0.9 Aortic Valve AoV Vmax 1.52 m/s LVOT Vmax 1.06 m/s AoV Peak Grad 9.3 mmHg LVOT Peak Grad 4.5 mmHg AoV Area (Vmax) 1.91 cm2 LVOT VTI 0.279 m AoV VTI 0.450 m LVOT Mean Grad 2.8 mmHg AoV Mean Joe. 1.12 m/s LVOT SV 76.96 mL AoV Mean Grad 5.6 mmHg LVOT Diam s 1.85 cm AoV Area (VTI) 1.71 cm2 AV Regurg Peak Gr. 9.30 mmHg Velocity Ratio 0.70 Mitral Valve MV DT 259 (160-240 msec) MV Vmax TIPS 1.45 m/s MV Mean Grad 3.7 (<2mmHg) MV VTI 0.464 m Pulmonary Valve PV Vmax 1.02 (0.5-1.5 m/s) RVOT Vmax 0.94 m/s PV Peak Grad 4.2 mmHg RVOT Peak Gr. 3.6 mmHg PV Mean Joe 0.76 m/s RVOT VTI 0.232 m PV Mean Grad 2.6 mmHg RVOT Mean Gr. 2.0 mmHg Tricuspid Valve RA Pressure 3.00 mmHg TR Vmax 2.37 m/s TR Peak Grad 22.4 mmHg RVSP (TR) 25.4 mmHg
== END 2024-03-03 01:28 ==
LOC: DI 01:09
PROVIDERS: PCP Nurse Practitioner Family; Visit Provider Nurse Practitioner Family
DX: Z12.31 Encounter for screening mammogram for malignant neoplasm of breast (principal); I34.0 Nonrheumatic mitral (valve) insufficiency; R01.1 Cardiac murmur, unspecified
CPT/HCPCS: 77063; 77067; 93306

== ENCOUNTER → 2024-03-10 13:14 | Outpatient (BNVA) | payer MEDICARE, SELFPAY | PROVIDERS: PCP Nurse Practitioner Family; Referring Provider Nurse Practitioner Family; Visit Provider Surgery | DX: Z12.11 Encounter for screening for malignant neoplasm of colon (principal); Z86.0100 Personal history of colon polyps, unspecified ==

== ENCOUNTER 2024-03-16 10:56 | Day surgery (SDC) | payer MEDICARE, SELFPAY ==
--- NOTE | 2024-03-15 17:42 | W.PM.DSUDISC ---
Date of service: 03/16/24 Time of Service: 13:30 Discharge Plan Disposition Patient Disposition: Home Condition: Good Discharge Details Reason For Visit: screening colonoscopy Attending Provider: Lake Kelley Primary Care Provider: Hyacinth Magaña Home Meds and New Rx's Prescriptions: Continued albuterol sulfate 90 mcg/actuation HFA aerosol inhaler 2 inh inhalation Q6H PRN (Reason: shortness of breath or wheezing) Qty: 18 1RF omeprazole 40 mg capsule,delayed release(DR/EC) 40 mg PO DAILY Qty: 90 1RF lorazepam 0.5 mg tablet 0.5 mg PO ONCE Qty: 2 0RF Rx Instructions: Take one tablet 30min prior to haircut to dampen head tremor. No more than 1 tab per day. GLUCOCIL PO Patient Comments: 2 tablets BID aspirin [Aspirin Low-Strength] 81 MG tablet,chewable 81 mg PO DAILY (DME) lancets 1 EACH misc 1 ea Miscellaneous BID Qty: 200 4RF Rx Instructions: FOR ONE TOUCH ULTRA MINI METER. NO INSULIN. DIAGNOSIS CODE E11.8 (DME) pen needle, diabetic 33 gauge x 1/4 needle See Rx Instructions .Route Qty: 100 0RF Rx Instructions: As directed. For use with Lantus pen. Inject once daily. trazodone 100 mg tablet 100 mg PO QHS PRN (Reason: sleep) Qty: 90 3RF glipizide 10 mg tablet 10 mg PO BID Qty: 180 4RF losartan 50 mg tablet 50 mg PO DAILY Qty: 90 4RF lovastatin 20 mg tablet 20 mg PO DAILY Qty: 90 4RF meclizine 25 mg tablet 25 mg PO BID PRN (Reason: dizziness) Qty: 30 2RF alendronate 70 mg tablet 70 mg PO QWEEK Qty: 12 3RF Anoro Ellipta 62.5-25 mcg/actuation blister with device 1 inh inhalation DAILY Qty: 60 3RF Discontinued polyethylene glycol 3350 17 gram/dose powder 238 g PO ONCE Qty: 238 0RF Rx Instructions: take per colonoscopy instructions bisacodyl [Dulcolax (bisacodyl)] 5 mg tablet,delayed release (DR/EC) 5 mg PO ONCE Qty: 4 0RF Rx Instructions: take per colonoscopy instructions Discharge Instructions Instructions: Best's esophagus, Diverticulosis Additional Instructions: Laura, it was great seeing you today. I hope you are comfortable during your procedures. Everything went very smoothly. 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 This means there are chronic changes across the connection between your stomach and your esophagus, probably from exposure to gastric acid. I did some biopsies here, but I do not see anything to be overly concerned about. Mainstay of therapy is proton pump inhibitor treatment such as the omeprazole that you currently use. I recommend continuing that. I did a few other biopsies in your stomach to see if there are any other potential options for treatment. Because of the very short length of affected esophagus, recommendation is to consider another EGD in 5 years. Your colonoscopy also went very smoothly. I did not see any evidence of polyps during this colonoscopy today. You do have some diverticulosis, which is extremely common, and also something that I do not think you need to worry about. Have attached a little bit of information here about Best's esophagus as well as diverticular disease. Based on your history, I recommend a 5-year follow-up for your colonoscopy as well. The biopsies from your EGD will take about a week or 2 to get back into the office, but once we have that information, the office will be in touch if there are any other treatments. They have any questions, do not hesitate to call. 1. If tolerated, consume a soft, low fiber diet for 1-2 days. 2[address] Do not drive, drink alcohol, operate machinery, make critical decisions, or do activities that require coordination or balance for 24 hours. 3. Because air was put into your colon during the procedure, expelling air from your rectum (passing gas or farting) is normal. 4. You may not have a bowel movement for 1-3 days because of the colonoscopy prep. This is normal. 5. You may experience a sore throat for 24 to 48 hours. You may use throat lozenges or gargle with warm salt water to relieve the discomfort. 6. Because air was put into your stomach during the procedure, you may experience some belching. 7. Go directly to the emergency room if you notice any of the following: Develop chills (warm to touch), or if you have a thermometer and your temperature is above 101 Difficulty breathing or difficultly swallowing Persistent vomiting Severe abdominal pain, other than gas cramps Severe chest pain Black, tarry stools Any bleeding ? exceeding one tablespoon 8. Call your physician if the site where your intravenous was started becomes red, swollen, painful, and warm to touch. 9. Your physician has reviewed your pre-procedure medications. Please continue to take those medications as previously ordered. You will be given specific information/education regarding any changes to your medications before leaving. Stand Alone Forms: Anesthesia Discharge InstJulia Fu (DSU) Activity:: Activity as Tolerated Diet:: As Tolerated Discharge Orders Discharge Orders: Discharge Order (Routine); Ordered 03/15/24 Ordered By: Lake Kelley DS: Diagnosis Discharge Diagnosis (1) Encounter for screening colonoscopy: Status: Acute Asessment and Plan: Negative screening colonoscopy, based on history recommend 5-year follow-up; short segment Best's esophagus consider 5-year repeat EGD
--- NOTE | 2024-03-15 17:44 | COLE_ITS ---
Date of service: 03/16/24 Time of Service: 13:33 Colonoscopy Report Date of procedure: 03/16/24 Pre-op diagnosis general: screening colonoscopy Post-op diagnosis procedure note: other (Short segment Best's esophagus, diverticulosis) Procedure: EGD with biopsies and screening colonoscopy Surgeon: Lake Kelley Anesthesia Type: General:No Airway Estimated blood loss (mL): 5 Pathology: other (Random biopsies of gastric antrum and body to rule out Helicobacter pylori, biopsies of GE junction for Best's esophagus) Complications: None Disposition: same day Indications: Augusta is a 78 year old woman with a history of adenomatous polyps who returns for her next screening colonsocopy Prep: Miralax/Dulcolax Procedure Start Time: 12:57 Procedure End Time: 13:18 Retraction Time: 7 Findings: Short segment Best's esophagus extending from 32 cm beyond the incisors to 34 cm; diverticulosis Procedure Description: After the initiation of anesthesia, and with the assistance of a bite block, I advanced a standard gastroscope through the mouth past the hypopharynx and into the esophagus.? Under the direct vision of the scope, I advanced down the esophagus towards the stomach. The upper, and midesophagus were normal and he althy appearing. There was short segment Best's esophagus with 1 single island of mucosa starting 32 cm beyond the incisors extending down to the GE junction at 34 cm beyond the incisors. Majority of the GE junction was regular and well-preserved. Narrowband imaging did seem consistent with Best's, and cold forceps biopsies were performed here. I then advanced down into the stomach and insufflated into the rugae were obliterated. The gastric cardia, body, and antrum were all normal and healthy appearing. I was able to traverse the pylorus into the duodenum with ease. The duodenum was all totally normal and healthy appearing with no evidence of any active inflammation ulceration or any other pathology. And was then brought back into the stomach, and on directed biopsies of the gastric antrum and body were performed using cold forceps to rule out Helicobacter pylori. There was minimal bleeding from the biopsy sites. The stomach was then completely emptied before removal of the camera out along the length of the esophagus 1 last time. No other abnormalities were appreciated. Next we rolled Laura into the left lateral decubitus position. I began by performing an external anorectal exam.? Perineum and skin were normal, as was the anal verge.? There was no evidence of external hemorrhoids.? Next, I performed a digital rectal exam.? I did not appreciate any abnormal findings.? Next, I advanced a colonoscope into the rectal vault.? I performed retroflexion.? This appeared normal.? Using insufflation, I then advanced the colonoscope beyond the rectal folds and into the sigmoid colon before advancing towards the cecum.? There was sigmoid diverticulosis.? There was a large area of colonoscopic tattoo in the transverse colon. Several passes were taken across t his area. There was no evidence of any pathology here. The scope was noted to be in the cecum by identification of the ileocecal valve and appendiceal orifice.? I then began withdrawing the colonoscope using repeated irrigation as necessary for full evaluation of the colonic mucosa. ?Once the scope was withdrawn to the level of the rectum, great care was taken to examine portions of the rectal folds.? Aside from the colonoscopic tattoo and some diverticulosis, I did not see any other pathology. [place] Bowel Prep [place] Bowel Prep Right Colon: 3 Left Colon: 3 Transverse Colon: 3 Total Score: 9
[2024-03-16 11:56] VITALS: BP 140/59; PULSE 74; RESP 18; TEMP 36.5; O2SAT 94
[2024-03-16] MEDS: Normal Saline Flush 10 ML SYR IV (12:17)
--- NOTE | 2024-03-16 12:44 | W.ANESPRE ---
General Info Date of Service Date Performed: 03/16/24 Height: 4 ft 8 in Weight: 55.9 kg Body Mass Index (BMI): 27.6 Surgical Procedure: Operation Date: 03/16/24 12:50 Proposed Procedure Side Surgeon p Colonoscopy/Gastroscopy Lake Kelley MD Meds Allergies and Home Medications Allergies Allergy/AdvReac Type Severity Reaction Status Date / Time hydrocodone bitartrate (From Allergy Severe hives Verified 03/16/24 11:27 Vicodin) phenobarbital Allergy Severe Psychosis Verified 03/16/24 11:27 metformin AdvReac Intermediate diarrhea Verified 03/16/24 11:27 sertraline AdvReac Intermediate Other (See Verified 03/16/24 11:27 Comment) empagliflozin (From AdvReac Skin Rash Verified 03/16/24 11:27 Jardiance) DOG DANDER Allergy Intermediate THROAT Uncoded 03/16/24 11:27 SWELLING Home Medication ?Medication ?Instructions ?Recorded aspirin 81 mg chewable tablet 81 mg PO DAILY 10/08/14 (Aspirin Low-Strength) lancets 28 gauge #200 ea 05/24/17 pen needle, diabetic 33 gauge x #100 ea 05/20/2305/02 trazodone 100 mg tablet 100 mg PO QHS PRN sleep #90 tabs 05/28/23 glipizide 10 mg tablet 10 mg PO BID #180 tabs 07/12/23 losartan 50 mg tablet 50 mg PO DAILY #90 tabs 07/12/23 lovastatin 20 mg tablet 20 mg PO DAILY #90 tab-caps 07/12/23 meclizine 25 mg tablet 25 mg PO BID PRN dizziness #30 tabs 07/12/23 GLUCOCIL PO 08/29/23 alendronate 70 mg tablet 70 mg PO QWEEK #12 tabs 12/03/23 umeclidinium 62.5 mcg-vilanterol 1 inh inhalation DAILY #60 ea 12/03/23 25 mcg/actuation powdr for inhalation (Anoro Ellipta) albuterol sulfate 90 mcg/actuation 2 inh inhalation Q6H PRN shortness 02/13/24 aerosol inhaler of breath or wheezing #18 grams omeprazole 40 mg capsule,delayed 40 mg PO DAILY #90 caps 02/13/24 release lorazepam 0.5 mg tablet 0.5 mg PO ONCE #2 tabs 02/19/24 Current Visit Medications: Current Medications Generic Name Dose Route Start Last Admin Trade Name Lucia PRN Reason Stop Dose Admin IV Miscellaneous Supplies 1 each 03/16/24 06:00 Iv Access IV 03/16/24 23:59 DIRECTED [facility] Ondansetron HCl 4 mg 03/15/24 17:45 Ondansetron 4 Mg/2 Ml Vial IVP 04/14/24 17:44 Q4H PRN PRN Nausea / Vomiting Sodium Chloride 0 ml 03/16/24 06:00 03/16/24 12:17 Normal Saline Flush 10 Ml Syr IV 03/16/24 23:59 10 ml PRN PRN Administration Sodium Chloride 0 ml 03/16/24 06:00 Normal Saline 10 Ml Vial IJ 03/16/24 23:59 DIRECTED PRN Sterile Water 0 ml 03/16/24 06:00 Water,Injection,Sterile 10 Ml Vial IJ 03/16/24 23:59 DIRECTED PRN PFSH Active Problems Active Problems: Problem Status Onset Code Encounter for screening colonoscopy Acute Z12.11 Benign head tremor Acute G25.0 Neck pain Acute M54.2 Acid reflux Chronic K21.9 Osteoarthritis of carpometacarpal joint of right thumb Acute M18.11 Solid nodule of lung 6 mm to 8 mm in diameter Acute R91.1 Osteoporosis Chronic M81.0 Insomnia Acute G47.00 Rectal sphincter spasm Acute K59.4 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 states she had her lungs checked out of [facility], and pt. said nobody told her anything. Rectal/anal hemorrhage Cataract, right eye (09/18/05) surgically repaired Surgical History Surgical History History of colonoscopy (~02/28/21) History of tonsillectomy History of colonoscopy (~07/13/19) Status post left cataract extraction (09/18/05) Status post right cataract extraction (10/16/05) Status post unilateral knee replacement (07/18/15) hysterectomy Replacement of total knee joint 07/18/15; RIGHT; DR. TAPIA 2016 Tobacco Smoking/Tobacco Use Status: Current every day Tobacco Type: cigarettes Smoking cigarettes per day: 10 Second hand exposure: Yes Counseling given: provider counseling Alcohol Alcohol Intake: current Alcohol intake frequency: holidays/special occasions only Alcohol type: beer Substance Use Substance use: Never Substance use type: does not use Details: alcohol: unknown Vital Signs and Lab Results Vital Signs Most Recent Vital Signs in EMR: Most Recent Vital Signs Temp Pulse Resp BP Pulse Ox 36.5 C 74 18 140/59 L 94 03/16/24 11:56 03/16/24 11:56 03/16/24 11:56 03/16/24 11:56 03/16/24 11:56 Lab Results Blood Type / Crossmatch: No Data to Display Complete Blood Count: No Data to Display Complete Metabolic Panel: No Data to Display Liver Function Panel: No Data to Display Coagulation Panel: No Data to Display Cardiac Panel: No Data to Display Arterial Blood Gas: No Data to Display Venous Blood Gas: No Data to Display Pancreas Panel: No Data to Display Thyroid Panel: No Data to Display Infectious Disease: No Data to Display Blood Cultures: No Data to Display Toxicology Panel: No Data to Display Imaging and Studies Imaging and Studies Study information below may be from another EMR and interpreted by another provider. Please see original notes in EMR for more complete details. EKG Summary: PATIENT NAME: Augusta Holden UNIT #: [id number] ORDERING PROVIDER: Amalia Dangelo M.D. PRIMARY CARE PROVIDER: BERNICE Velez ASSEMBLER BONDING,EBONY DATE/TIME OF SERVICE: 06/09/211444 : 1945 PERFORMING LOCATION: ER APPROVED REPORT Exam: Resting ECG Reason for Exam: DIZZINESS Patient Location: E HR:68 bpm ECG Measurements Heart Rate 68 AXIS FL 170 P 48 QRSd 75 QRS 30 QT 409 T41 QTc 435 Conclusion Sinus rhythm...normal P axis, V-rate 60- 99 <Electronically signed by AMALIA DANGELO MD in OV> E-Sign Date: 06/09/21 E-Sign Time: 1447 ADDENDUM APPROVED REPORT Exam: Resting ECG Reason for Exam: DIZZINESS Patient Location: E HR:68 bpm ECG Measurements Heart Rate 68 AXIS FL 170 P 48 QRSd 75 QRS 30 QT 409 T41 QTc 435 Conclusion Sinus rhythm...normal P axis, V-rate 60- 99 I have reviewed and I agree with the emergency room physician's ECG interpretation Echocardiogram Summary: Patient Name: Augusta Holden Unit #: [id number] Loc: Ordering Provider: Hyacinth Magaña NP Status[facility] Primary Care Provider: Hyacinth Magaña NP Date of Exam: 03/03/24 Sex: F Admission Date: 03/03/24 : 1945 Age: 78 APPROVED REPORT EXAM: Comprehensive 2D, Doppler, and color-flow Echocardiogram Patient Location: Out-Patient [employer] Professional: Lacey Cody RDCS (AE) Indications: Monitoring mitral regurgitation, Heart murmur Other Information Study Quality: Adequate. Technically limited study due to body habitus, smoker. Conclusion Normal left ventricular wall thickness and chamber size. Ejection fraction is 55%. Wall motion is normal Normal right ventricular size and function Left atrium is mildly dilated. Right atrial size is normal Aortic valve is sclerotic without stenosis or regurgitation Mitral annular calcification. Trace mitral regurgitation Normal tricuspid valve with trace regurgitation. Estimated right ventricular systolic pressure is 25 mmHg Wall motion Left Ventricle Technically limited parasternal imaging. The overall left ventricular systolic function appears normal. There is normal LV segmental wall motion. There is no ventricular septal defect visualized. LVEF is 55%. Right Ventricle The right ventricle is normal size. The right ventricular systolic function is normal. Atria The left atrium is mildly dilated The right atrium size is normal. The interatrial septum is intact with no evidence for an atrial septal defect. Aortic Valve The Aortic valve is sclerotic. Number of aortic valve leaflets could not be kyle assessed. There is no aortic valvular stenosis. No aortic regurgitation is present. Mitral Valve Mild mitral annular calcification. No evidence of mitral valve stenosis. Trace mitral regurgitation. Tricuspid Valve The tricuspid valve is normal in structure. There is no tricuspid valve stenosis. Trace tricuspid regurgitation. The RVSP is 25.4 mmHg. Pulmonic Valve The pulmonary valve is normal in structure. There is no pulmonic valvular stenosis. There is no pulmonic valvular regurgitation. Great Vessels The aortic root is normal in size. The ascending aorta is normal in size. Aortic arch is not well visualized. IVC is normal in size and collapses >50% with inspiration. Pericardium There is no pericardial effusion. 2D Dimensions Ao Root d 2.45 cm F: 2.7 - 3.3 Ao Asc Diam d 2.47 cm F: 2.3 - 3.1 Auto EF LV EDV A4C59.1 mLLV EDV A2C59.9 mLLV EDV BP59.5 mL LV ESV A4C26.9 mLLV ESV A2C26.1 mLLV ESV BP26.8 mL LVEF(%) A4C54.4 %LVEF(%) A2C56.4 %LVEF(%) BP55.0 % LV SV A4C32.2 mlLV SV A2C33.8 mlLV SV BP32.8 ml LV CO A4C2.2 L/minLV CO A2C2.2 L/minLV CO BP2.2 L/min HR A4C69.37 BPMHR A2C66.18 BPMLV EDV Index (BP) LA Volume LA Length A4C4.7 cmLA Length A2C4.7 cm LA Area A4C s 12.50 cm2LA Area A2C s 12.42 cm2 LA Vol A4C A-L28.01 mLLA Vol A2C A-L28.03 mLLA Vol Biplane A-L28.2 mL LA Vol/BSA A4C A-LLA Vol/BSA A2C A-LLA Vol/BSA BP A-L 19.1 mL/m2 LA Vol A4C MOD26.5 mLLA Vol A2C MOD26.6 mLLA Vol BP MOD26.7 mL RA Volume RA Area A4C8.0 cm2RA ESV A4C (A-L)13.5mLRA Vol/BSA A4C A-L RA Length A4C4.0 cmRA ESV A4C (MOD)13.2mL LV Diastology MV E Vmax 1.19 (0.4-1.3 m/s) MV A Vmax 1.35 (0.4-1.3 m/s) E/A Ratio 0.9 Aortic Valve AoV Vmax1.52 m/sLVOT Vmax 1.06 m/s AoV Peak Grad9.3 mmHgLVOT Peak Grad 4.5 mmHg AoV Area (Vmax)1.91 [id number] VTI0.279 m AoV VTI0.450 mLVOT Mean Grad 2.8 mmHg AoV Mean Joe.1.12 m/sLVOT SV 76.96 mL AoV Mean Grad5.6 mmHgLVOT Diam s 1.85 cm AoV Area (VTI)1.71 cm2AV Regurg Peak Gr.9.30 mmHg Velocity Ratio 0.70 Mitral Valve MV DT 259 (160-240 msec) MV Vmax TIPS 1.45 m/s MV Mean Grad 3.7 (<2mmHg) MV VTI 0.464 m Pulmonary Valve PV Vmax 1.02 (0.5-1.5 m/s)RVOT Vmax 0.94 m/s PV Peak Grad 4.2 mmHgRVOT Peak Gr.3.6 mmHg PV Mean Vel0.76 m/sRVOT VTI0.232 m PV Mean Grad 2.6 mmHgRVOT Mean Gr.2.0 mmHg Tricuspid Valve RA Pressure 3.00 mmHgTR Vmax 2.37 m/s TR Peak Grad 22.4 mmHg RVSP (TR) 25.4 mmHg Ordered By: Hyacinth Magaña NP CC: Dictated By: Michelle Bello M.D. 03/03/24 1345 <Electronically signed by Michelle Bello M.D. in OV> 03/03/24 1421 Transcribed By: Michelle Bello MD 03/03/24 1345 Anesthesia Assessment and Plan Anesthesia History Personal History: No History of Anesthesia Complications Family History: No Family History of Anesthesia Complications Exercise Tolerance Exercise Tolerance: Metabolic Equivalents>4 Pertinent Negatives Pertinent Negatives: No Symptoms of GERD, No Major Cardiovascular Symptoms or Complaints, No Major Pulmonary Symptoms or Complaints and No History of CVA/TIA Cardiac & Pulmonary Exam Cardiac Exam: Normal S1/S2 Heart Sounds Pulmonary Exam: Clear Bilateral Breath Sounds Implantable Cardiac Device Does patient have a Pacemaker or an ICD?: No Airway Exam Known Difficult Airway: No Mallampati Class: 2 Mouth Opening: Normal (> 3cm) Thyromental Distance: Greater than 3 cm Neck Range of Motion: Full ROM Neck Circumference: Normal Teeth Condition: Normal Dentition ASA Classification ASA Score: ASA 2 Emergency Case?: No NPO Status NPO Status: NPO Clears >2 hours, Solids >8 hours Anesthesia Plan Resuscitation Status: Full Code Anesthesia Technique: General Anesthesia Airway Planned: Natural Airway Monitors Used: Standard Monitors
[2024-03-16 12:45] VITALS: BMI 27.6
--- NOTE | 2024-03-16 12:59 | STOM_PTH ---
PATIENT: Augusta Holden LOC: [facility] U#:[id number] AGE/SX: 78/F ROOM: RE03/16/[address]: Lake Kelley MD : 1945 BED: DIS: 03/16/2024 SPEC #: [id number] RECD: 03/16/24 16:57 STATUS: BLANE RE #: [id number] JEY: 03/16/24 12:[address]: Lake Kelley DEPT: Surgical Specimen RECD BY: Stormy Mayers ENTERED: 03/16/24 16:57 SP TYPE: STOMACH OTHR DR: Hyacinth Magaña, ENGINEERING SURVEYOR Tissues: 1 - STOMACH BIOPSY 2 - STOMACH BIOPSY 3 - ESOPHAGUS BIOPSY Procedures: GROSS AND MICRO LEVEL 4 Comments: [id number]
[2024-03-16 13:24] VITALS: BP 130/47; PULSE 73; RESP 16; TEMP 36.5; O2SAT 95
--- NOTE | 2024-03-16 13:32 | W.ANESPOSTOP ---
Postoperative Evaluation Date, Time and Location Date Performed: 03/16/24 Time Performed: 13:26 Patient Location: Day Surgery Unit Vital Signs Most Recent Imported Vital Signs: Most Recent Vital Signs Temp Pulse Resp BP Pulse Ox 36.5 C 73 16 130/47 L 95 03/16/24 13:24 03/16/24 13:24 03/16/24 13:24 03/16/24 13:24 03/16/24 13:24 Pain Score Most Recent Pain Score: Most Recent Pain Score Pain Level 0 03/16/24 13:24 Assessment Mental Status: Arousable with meaningful communication Airway and Respiratory Function: Patent airway with normal (patient baseline) respiratory exam Cardiovascular Function: Hemodynamically Stable Hydration Status: Adequately Hydrated Nausea & Vomiting: No Nausea or Vomiting Pain: Pt. Denies Any Pain Peripheral Nerve Block: Patient did not receive a nerve block
[2024-03-16 13:56] VITALS: BP 152/66; PULSE 67; RESP 16; TEMP 36.5; O2SAT 96
== END 2024-03-16 14:10 | disposition home or self-care (01) ==
LOC: SUR 10:57
PROVIDERS: PCP Nurse Practitioner Family; Visit Provider Surgery
PROC: (CPT 43239; principal; 2024-03-16 12:45)
DX: Z12.11 Encounter for screening for malignant neoplasm of colon (principal); K31.89 Other diseases of stomach and duodenum; E11.9 Type 2 diabetes mellitus without complications; I10 Essential (primary) hypertension; K57.30 Diverticulosis of large intestine without perforation or abscess without bleeding; K22.70 Barrett's esophagus without dysplasia; Z86.0100 Personal history of colon polyps, unspecified; K31.A0 Gastric intestinal metaplasia, unspecified
CPT/HCPCS: 43239; G0105; 88305; J2704

== ENCOUNTER 2024-05-08 01:02 | Outpatient (CLI) | payer MEDICARE, SELFPAY ==
[2024-05-08 13:56] LABS: HCT 41.1 % (36.0-46.0); HGB 13.7 g/dL (11.2-15.7); MCH 30.9 pg (27.0-33.0); MCHC 33.3 % (32.0-36.0); MCV 93 fL (80-95); MPV 10.2 fL (8.0-11.0); Platelet Count 205 10^3/uL (130-400); RBC 4.44 10^6/uL (3.93-5.22); RDW 13.2 % (11.7-14.6)
[2024-05-08 15:00] LABS: ALT 21 U/L (14-59); AST 17 U/L (15-37); Albumin 3.9 g/dL (3.4-5.0); Alkaline Phosphatase 76 U/L (46-116); Anion Gap 6.2 mmol/L (3-11); BUN 13 mg/dL (7-18); Bilirubin, Total 0.31 mg/dL (0.2-1.0); CO2 28.8 mmol/L (21.0-32.0); Calcium 9.2 mg/dL (8.5-10.1); Calculated LDL 69 mg/dL (<100); Chloride 108 mmol/L (98-107); Cholesterol 130 mg/dL (<200); Estimated GFR 58.02 (mL/min/1.73m2); Glucose 126 mg/dL (74-106); HDL Cholesterol 52 mg/dL (40-60); Potassium 4.2 mmol/L (3.5-5.1); Sodium 143 mmol/L (136-145); TSH (W/Ref FT4) 1.17 uIU/mL (0.36-3.74); Total Protein 7.1 g/dL (6.4-8.2); Triglyceride 48 mg/dL (<150)
== END 2024-05-08 01:03 | disposition home or self-care (01) ==
LOC: LBO 01:02
PROVIDERS: PCP Nurse Practitioner Family; Visit Provider Nurse Practitioner Family
DX: I10 Essential (primary) hypertension (principal); Z00.00 Encounter for general adult medical examination without abnormal findings; E11.8 Type 2 diabetes mellitus with unspecified complications; E11.65 Type 2 diabetes mellitus with hyperglycemia; J44.9 Chronic obstructive pulmonary disease, unspecified; K21.9 Gastro-esophageal reflux disease without esophagitis
CPT/HCPCS: 36415; 80053; 80061; 85027; 84443

== ENCOUNTER → 2024-07-06 12:18 | Outpatient (BNVA) | payer MEDICARE, SELFPAY | PROVIDERS: PCP Nurse Practitioner Family; Referring Provider Nurse Practitioner Family; Visit Provider Psychiatry & Neurology Neurology | DX: M54.2 Cervicalgia (principal); G25.0 Essential tremor; I10 Essential (primary) hypertension; E11.9 Type 2 diabetes mellitus without complications; E78.5 Hyperlipidemia, unspecified; J44.9 Chronic obstructive pulmonary disease, unspecified | CPT/HCPCS: 99213 ==

== ENCOUNTER 2025-02-05 12:44 | Emergency (ER) | payer MEDICARE, SELFPAY ==
[2025-02-05 12:46] VITALS: BP 154/67; PULSE 82; RESP 16; TEMP 36.9; O2SAT 98
--- NOTE | 2025-02-05 13:30 | DI.RAD_ITS ---
Exam(s) XR KNEE RT 3V AP,LAT,BRANDAN EXAM: XR KNEE RT 3V AP,LAT,BRANDAN CLINICAL HISTORY: pain, hx of tka. TECHNIQUE: 2D digital imaging was performed. COMPARISON: CR LEFT KNEE LIMITED 1 OR 2 VIEWS from 07/18/2017 CR LEFT KNEE LIMITED 1 OR 2 VIEWS from 10/21/2017 FINDINGS: 3 views There is a right knee prosthesis. The femoral component appears well seated with no obvious fracture or loosening. With regards to the tibial component, there is a thin calcific density measuring 5 x 1 mm just off the outer aspect of the lateral tibial plateau. This may be significant although this cannot be called a true Segond fragment given that there is an ipsilateral arthroplasty. No obvious loosening. No obvious joint effusion. Some scarring in the anterior Hoffa fat pad noted. IMPRESSION: Findings off the lateral aspect of the tibial component of the prosthesis as described above. Correlation with site of tenderness is recommended. DATA REPOSITORY: RADIATION DOSE DELIVERED:
[2025-02-05 13:55] LABS: Abs Immature Grans 0.03 10^3/uL (0.0-0.06); HCT 39.9 % (36.0-46.0); HGB 13.4 g/dL (11.2-15.7); Immature Grans % 0.3 %; MCH 30.5 pg (27.0-33.0); MCHC 33.6 % (32.0-36.0); MCV 91 fL (80-95); MPV 10.2 fL (8.0-11.0); Platelet Count 204 10^3/uL (130-400); RBC 4.40 10^6/uL (3.93-5.22); RDW 12.6 % (11.7-14.6); RDW-SD 41.1 fL; WBC 8.92 10^3/uL (4.4-10.8)
[2025-02-05 13:58] LABS: ESR 4 mm/hr (0-30)
[2025-02-05 14:08] LABS: Uric Acid 2.9 mg/dL (2.6-6.0)
[2025-02-05 14:13] LABS: C-Reactive Protein < 0.50 mg/dL (<or=0.5)
--- NOTE | 2025-02-05 14:15 | DI.CT_ITS ---
Exam(s) CT LOWER EXTREMITY RT WO EXAM: CT LOWER EXTREMITY RT WO CLINICAL HISTORY: knee pain, hx of tka. TECHNIQUE: Imaging Protocol: Axial computed tomography images with coronal and sagittal reformatted images were created and reviewed. CONTRAST MATERIAL: Intravenous: Omnipaque 350 Contrast volume:structured data in ml Contrast route:IV - Oral: yes / no COMPARISON: Plain films earlier same date reviewed. FINDINGS: OSSEOUS: Components of the total knee arthroplasty appear well-seated with with no fractures nor obvious loosening. There is no evidence of osteomyelitis. SOFT TISSUES: No significant findings. IMPRESSION: No obvious abnormal findings. Report called by myself to ER provider RADIATION DOSE DELIVERED: 118.08mGy.cm Total DLP DATA REPOSITORY: All CT scans at this facility are submitted to the National Radiology Data Registry (NRDR) Dose Index Registry (DIR) with the [employer] ([employer]). RADIATION OPTIMIZATION: All CT scans at this facility use at least one of these dose optimization techniques: automated exposure control; mA and/or kV adjustment per patient size (includes targeted exams where dose is matched to clinical indication); or iterative reconstruction.
--- NOTE | 2025-02-05 15:34 | W.ED.GENAD ---
Discharge Plan Disposition Patient Disposition: Home Condition: Stable Discharge Details Clinical Impression: Acute knee pain Primary Care Provider: Hyacinth Magaña ED Provider: Juan Laguna Home Meds and New Rx's Prescriptions: New tramadol 50 mg tablet 50 mg PO BID PRNQty: 10 0RF Continued albuterol sulfate 90 mcg/actuation HFA aerosol inhaler 2 inh inhalation Q6H PRN (Reason: shortness of breath or wheezing) Qty: 18 1RF lorazepam 0.5 mg tablet 0.5 mg PO ONCE Qty: 2 0RF Rx Instructions: Take one tablet 30min prior to haircut to dampen head tremor. No more than 1 tab per day. GLUCOCIL PO Patient Comments: 2 tablets BID aspirin [Aspirin Low-Strength] 81 MG tablet,chewable 81 mg PO DAILY (DME) lancets 1 EACH misc 1 ea Miscellaneous BID Qty: 200 4RF Rx Instructions: FOR ONE TOUCH ULTRA MINI METER. NO INSULIN. DIAGNOSIS CODE E11.8 (DME) pen needle, diabetic 33 gauge x 1/4 needle See Rx Instructions .Route Qty: 100 0RF Rx Instructions: As directed. For use with Lantus pen. Inject once daily. trazodone 100 mg tablet 100 mg PO QHS PRN (Reason: sleep) Qty: 90 3RF glipizide 10 mg tablet 10 mg PO BID Qty: 180 4RF losartan 50 mg tablet 50 mg PO DAILY Qty: 90 4RF lovastatin 20 mg tablet 20 mg PO DAILY Qty: 90 4RF omeprazole 40 mg capsule,delayed release(DR/EC) 40 mg PO DAILY Qty: 90 1RF alendronate 70 mg tablet 70 mg PO QWEEK Qty: 12 3RF meclizine 25 mg tablet 25 mg PO BID PRN (Reason: dizziness) Qty: 30 2RF umeclidinium-vilanterol [Anoro Ellipta] 62.5-25 mcg/actuation blister with device 1 inh inhalation DAILY Qty: 60 3RF Discharge Instructions Instructions: Knee pain Additional Instructions: Workup in the ER does not reveal any evidence of infection, gout, or signs of loosening of your total knee arthroplasty. Wear the hinged knee wrap as tolerated. Use your walker as needed. Rest, elevate, cool and/or warm compresses every 2 hours for 20 minutes. Please continue [id number] NSAIDs and you may add on acetaminophen as directed. A prescription of tramadol has been provided, this medication may cause drowsiness and constipation, consider taking a stool softener while taking this medication. Please watch for new or worsening symptoms and return to the ER for any concerns. Please follow-up with Dr. Miels on March 01 as already scheduled. HPI General Mode of arrival: ambulatory. Date/Time Provider Initiated Documentation: 02/05/25 12:57. Limitations to Documentation: no limitations. Information obtained by: patient and family. History of Present Illness 79 year old F presents to the emergency department with the chief complaint of Knee pain, described as severe, with intensity rated at 8. Quality is described as aching and sharp, and is localized to the right and lower extremity. Patient reports no radiation. Patient started experiencing this day(s) (4) and it has been constant. Immobilization improves symptom(s), Movement worsens symptoms . Patient notes no other symptoms.. Patient did receive the following treatments prior to arrival, NSAID Related Data Home Medications ?Medication ?Instructions ?Recorded ?Confirmed aspirin 81 mg chewable tablet 81 mg PO DAILY 10/08/14 02/05/25 (Aspirin Low-Strength) lancets 28 gauge #200 ea 05/24/17 02/05/25 pen needle, diabetic 33 gauge x #100 ea 05/20/23 02/05/25/ GLUCOCIL PO 08/29/23 07/09/24 albuterol sulfate 90 mcg/actuation 2 inh inhalation Q6H PRN shortness 02/13/24 02/05/25 aerosol inhaler of breath or wheezing #18 grams lorazepam 0.5 mg tablet 0.5 mg PO ONCE #2 tabs 02/19/24 02/05/25 trazodone 100 mg tablet 100 mg PO QHS PRN sleep #90 tabs 06/02/24 02/05/25 glipizide 10 mg tablet 10 mg PO BID #180 tabs 08/10/24 02/05/25 losartan 50 mg tablet 50 mg PO DAILY #90 tabs 08/10/24 02/05/25 lovastatin 20 mg tablet 20 mg PO DAILY #90 tab-caps 08/10/24 02/05/25 omeprazole 40 mg capsule,delayed 40 mg PO DAILY #90 caps 08/10/24 02/05/25 release alendronate 70 mg tablet 70 mg PO QWEEK #12 tabs 12/21/24 02/05/25 meclizine 25 mg tablet 25 mg PO BID PRN dizziness #30 tabs 01/19/25 02/05/25 umeclidinium 62.5 mcg-vilanterol 1 inh inhalation DAILY #60 ea 02/01/25 02/05/25 25 mcg/actuation powdr for inhalation (Anoro Ellipta) tramadol 50 mg tablet 50 mg PO BID PRN #10 tabs 02/05/25 Previous Rx's ?Medication ?Instructions ?Recorded lancets 28 gauge #200 ea 05/24/17 pen needle, diabetic 33 gauge x #100 ea 05/20/2305/02 albuterol sulfate 90 mcg/actuation 2 inh inhalation Q6H PRN shortness 02/13/24 aerosol inhaler of breath or wheezing #18 grams lorazepam 0.5 mg tablet 0.5 mg PO ONCE #2 tabs 02/19/24 trazodone 100 mg tablet 100 mg PO QHS PRN sleep #90 tabs 06/02/24 glipizide 10 mg tablet 10 mg PO BID #180 tabs 08/10/24 losartan 50 mg tablet 50 mg PO DAILY #90 tabs 08/10/24 lovastatin 20 mg tablet 20 mg PO DAILY #90 tab-caps 08/10/24 omeprazole 40 mg capsule,delayed 40 mg PO DAILY #90 caps 08/10/24 release alendronate 70 mg tablet 70 mg PO QWEEK #12 tabs 12/21/24 meclizine 25 mg tablet 25 mg PO BID PRN dizziness #30 tabs 01/19/25 umeclidinium 62.5 mcg-vilanterol 1 inh inhalation DAILY #60 ea 02/01/25 25 mcg/actuation powdr for inhalation (Anoro Ellipta) tramadol 50 mg tablet 50 mg PO BID PRN #10 tabs 02/05/25 Allergies Allergy/AdvReac Type Severity Reaction Status Date / Time hydrocodone bitartrate (From Allergy Severe hives Verified 02/05/25 12:50 Vicodin) phenobarbital Allergy Severe Psychosis Verified 02/05/25 12:50 metformin AdvReac Intermediate diarrhea Verified 02/05/25 12:50 sertraline AdvReac Intermediate Other (See Verified 02/05/25 12:50 Comment) empagliflozin (From AdvReac Skin Rash Verified 02/05/25 12:50 Jardiance) DOG DANDER Allergy Intermediate THROAT Uncoded 02/05/25 12:50 SWELLING General Stated Complaint: Orthopedic LACHELLE: 4 Review of Systems Constitutional Constitutional: Denies fever(s) and Denies weakness Cardiovascular Cardiovascular: Denies chest pain at rest and Denies dyspnea Respiratory Respiratory: Denies dyspnea Musculoskeletal Musculoskeletal: Reports arthralgias, Denies numbness and Denies tingling Integumentary/Breasts Skin/Breast: Denies rash Neurologic Neurologic: Denies numbness, Denies tingling and Denies weakness Exam Const General: cooperative, healthy appearing, comfortable and no acute distress Orientation: alert and awake HENMT Head: normal to inspection, normocephalic and atraumatic Mouth: moist mucous membranes Eyes Conjunctivae: conjunctivae normal Neck Neck: normal visual inspection, trachea midline and supple Resp Effort & Inspection: normal respiratory effort and able to speak in complete sentences Cardio Rate: regular rate Rhythm: regular rhythm Skin General skin exam: no rashes or lesions noted Neuro General: patient alert, patient awake, moves all extremities and no focal motor deficits Cognition: normal cognition Speech: speech normal Gait: normal gait Sensory Exam: no sensory deficits noted Extrem Other: Right knee exam: Well-healed surgical incision. Intact skin without erythema, ecchymosis, swelling, or obvious deformity. No palpable effusion. AROM yields extension just a few degrees shy of full, flexion to about 110 degrees. Diffuse moderate discomfort about the anterior knee, more so over the superior patella and quadriceps insertion. No quad defect noted. Able to hold extension against moderate resistance, this does increase the discomfort.. No discomfort over the medial and lateral joint line. Knee is stable to varus and valgus stress without significant discomfort. Negative anterior drawer. Sensation intact throughout. Psych Appearance: grossly normal Mental Status: mental status grossly normal Course Vital Signs Vital signs: Vital Signs Temperature 36.9 C 02/05/25 12:46 Pulse 82 02/05/25 12:46 Respiratory Rate 16 02/05/25 12:46 Blood Pressure 154/67 H 02/05/25 12:46 Pulse Oximetry 98 02/05/25 12:46 Temperature 36.9 C 02/05/25 12:46 Pulse 82 02/05/25 12:46 Respiratory Rate 16 02/05/25 12:46 Blood Pressure 154/67 H 02/05/25 12:46 Pulse Oximetry 98 02/05/25 12:46 Pain Level 10 02/05/25 12:46 Lab/Test Results Lab/Test Results: Laboratory Tests Range/Units 02/05/25 13:47 WBC (4.4-10.8) 10^3/uL 8.92 RBC (3.93-5.22) 10^6/uL 4.40 Hgb (11.2-15.7) g/dL 13.4 Hct (36.0-46.0) % 39.9 MCV (80-95) fL 91 MCH (27.0-33.0) pg 30.5 MCHC (32.0-36.0) % 33.6 RDW (11.7-14.6) % 12.6 Plt Count (130-400) 10^3/uL 204 MPV (8.0-11.0) fL 10.2 Immature Gran % % 0.3 Neutrophils % % 75.9 Lymphocytes % % 17.4 Monocytes % % 5.7 Eosinophils % % 0.4 Basophils % % 0.3 Nucleated RBC % (0.0-0.3) % 0.0 Absolute Neutrophils (1.2-6.7) 10^3/uL 6.76 H Absolute Lymphocytes (1.2-3.4) 10^3/uL 1.55 Absolute Monocytes (0.1-0.8) 10^3/uL 0.51 Absolute Eosinophils (0.0-0.7) 10^3/uL 0.04 Absolute Basophils (0.0-0.2) 10^3/uL 0.03 ESR (0-30) mm/hr 4 Uric Acid (2.6-6.0) mg/dL 2.9 C-Reactive Protein (<or=0.5) mg/dL < 0.50 Medical Decision Making 79-year-old female, history of bilateral TKA, the right in about [address] Tapia, diabetes, pack-a-day smoker, hypertension, COPD, mitral valve regurgitation, presents for atraumatic right knee pain that began 4 or 5 days ago in a nontraumatic fashion. Pain is more so about the anterior aspect of the knee but she does state the pain is all over. Clinically her discomfort is more about the superior patella and the quadriceps insertion, feels soft tissue in nature. While she does admit to some chronic right hip pain this is mild in nature and is not complaining of any right hip pain today. Easily ranges her right hip without discomfort. Denies fever, skin rash, or known tick bite. Clinically she appears well, nontoxic. Knee does not appear unstable or septic. Will obtain routine laboratory values including CBC, CRP, sed rate, uric acid as well as x-ray of the right knee. She contacted the orthopedic office and has an appointment with Dr. Miles on March 01 but did not feel that she should wait that long to be seen so came to the ER. White blood cell count of 8.92, ESR 4 uric acid 2.9, CRP less than 0.5. Right knee x-ray read by me as satisfactory right TKA, no evidence of acute injury. Radiology did question a thin calcific density measuring 5 x 1 mm just off the outer aspect of the lateral tibial plateau. Discussed workup with patient. The patient concerned regarding failure of her prior surgery. Will obtain CT of the right knee. Right knee CT obtained and read by radiology as no obvious abnormal findings. Discussed in length with patient and family. She is reassured of her benign workup but quite frustrated given her ongoing knee pain. She was fitted with a right knee Velcro hinged knee brace. She already has crutches at home. She is using NSAIDs [id number] and we will add on acetaminophen. Will provide limited tramadol prescription for bedtime relief. Discussed cool and/or warm compresses as tolerated. She was encouraged to watch for new or worsening symptoms and return to the ER immediately. Otherwise follow-up with Dr. Miles as already scheduled on March 01. Standard discharge and return precautions were provided. Patient understands, is agreeable to this plan, and has no additional questions or concerns upon discharge. This documentation was generated using [employer] system, please disregard any oddities of phrase or misspellings. Medical Records Medical records reviewed: Yes I reviewed the patient's medical records. Lab Data Lab results reviewed: Yes I reviewed the patient's lab results. 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 states she [place] [facility] [place]. said nobody told her anything. Rectal/anal hemorrhage Cataract, right eye (09/18/05) surgically repaired Surgical History History of colonoscopy (~02/2024) History of tonsillectomy History of colonoscopy (~07/13/19) Status post left cataract extraction (09/18/05) Status post right cataract extraction (10/16/05) Status post unilateral knee replacement (07/18/15) hysterectomy Replacement of total knee joint 07/18/15; RIGHT; DR. TAPIA 2016 Family History Mother Emphysema lung Father No problems noted. Brother No problems noted. Social History Smoking/Tobacco Use Status: Current every day Tobacco Type: cigarettes Tobacco: How many years used: 67 Quit status: considering quitting Second Hand Exposure: Yes Counseling given: provider counseling Smoking risk assessment performed?: Yes Alcohol Intake: current Alcohol Intake frequency: holidays/special occasions only Alcohol type: beer Drug use: Never Substance use type: does not use Details: alcohol: unknown Adopted: No Household members: spouse Housing: house Number of Children: 4 number of grandchildren: 4 Communication Needs: None Education Level: elementary school Do you need help understanding health information?: Rarely current occupation: retired Pets and animals: Yes Pets and animals: dog(s) Sexually active: No Do you think of yourself as: straight/heterosexual What is your relationship status?: How often do you talk on the phone with friends or family?: three or more times per week How often do you get together with friends or relatives?: decline to answer How often do you attend confucianism or congregational services?: decline to answer Do you belong to any clubs or organized social groups?: no Panel score (0-1 are the most socially isolated patients): 2 What type of physical activity do you participate in: none Seatbelt use: always Drive intox or ride w/intox nascar driver: No Working smoke detector in home: Yes Carbon monox detector in home: Yes Firearms in home: Yes Firearms unloaded and locked: Yes Do you feel safe at home: Yes Do you feel safe in your relationship?: Yes Victim of physical abuse: No Victim of emotional abuse: No Victim of sexual abuse: No Would you like helpful sources: No
--- NOTE | 2025-02-06 16:53 | NUR.NOTE ---
Access chart to get the discharge diagnosis and to print the demographic sheet for [facility] billing requisition. Nursing Note:
--- NOTE | 2025-03-16 16:44 | NUR.NOTE ---
Accessed Pt chart to print off Provider Notes for [facility] paperwork
== END 2025-02-05 15:48 | disposition home or self-care (01) ==
PROVIDERS: Emergency Provider Physician Assistant; PCP Nurse Practitioner Family
DX: M25.561 Pain in right knee (principal)
CPT/HCPCS: 99285; 99284; 73562; 85652; 73700; 84550; 85025; 86140

== ENCOUNTER → 2025-04-01 00:16 | Outpatient (CLI) | payer MEDICARE, SELFPAY ==
--- NOTE | 2025-04-01 07:40 | DI.US_ITS ---
Exam(s) US ABDOMEN LIMITED EXAM: US ABDOMEN LIMITED CLINICAL HISTORY: RUQ pain, ? liver, gallbladder or hernia,r10.11 TECHNIQUE: Ultrasound abdomen performed using standard protocol. COMPARISON: US US ECHOCARDIOGRAM from 03/03/2024 FINDINGS: There is no ascites evident. LIVER: There are no hepatic lesions evident nor dilatation of intrahepatic ducts. GALLBLADDER/BILIARY: There are no gallstones. No gallbladder wall edema nor pericholecystic fluid. The common hepatic duct isnot dilated, measuring 4mm at the level of will hepatis. PANCREAS: There is no evidence of pancreatic mass nor dilatation of the pancreatic duct. RIGHT KIDNEY:No evidence of solid mass, calculus, nor hydronephrosis. No cortical cysts evident. IMPRESSION: 1. No evidence of cholelithiasis nor dilatation of the biliary tree. 2. No other significant ultrasound findings in the right upper quadrant. 3. There is no ascites. DATA REPOSITORY:
--- NOTE | 2025-04-01 08:10 | DI.US_ITS ---
Exam(s) US HERNIA EXAM: US HERNIA CLINICAL HISTORY: RUQ pain, ? liver, gallbladder or hernia,r10.11. TECHNIQUE: Ultrasound was performed using standard protocol. COMPARISON: US US ABDOMEN LIMITED from 04/01/2025 FINDINGS: Dedicated ultrasound examination of the area of clinical concern on the upper midline anterior abdominal wall was performed.. The skin and subcutaneous layers at this level appear unremarkable. There is no evidence of abdominal wall hernia at this level. No evidence of solid lesion nor fluid collection. IMPRESSION: No significant ultrasound findings in the region of interest. No evidence of hernia at this level. DATA REPOSITORY:
== END ==
LOC: DI 00:17
PROVIDERS: PCP Nurse Practitioner Family; Visit Provider Nurse Practitioner Family
DX: R10.11 Right upper quadrant pain (principal)
CPT/HCPCS: 76857; 76705

== ENCOUNTER 2025-04-01 08:18 | Outpatient (CLI) | payer MEDICARE, SELFPAY ==
[2025-04-01 08:36] LABS: HCT 39.5 % (36.0-46.0); HGB 13.1 g/dL (11.2-15.7); MCH 30.4 pg (27.0-33.0); MCHC 33.2 % (32.0-36.0); MCV 92 fL (80-95); MPV 10.8 fL (8.0-11.0); Platelet Count 196 10^3/uL (130-400); RBC 4.31 10^6/uL (3.93-5.22); RDW 12.9 % (11.7-14.6); RDW-SD 42.8 fL; WBC 7.68 10^3/uL (4.4-10.8)
[2025-04-01 09:51] LABS: Hemoglobin A1C 6.5 % (<5.7)
[2025-04-01 10:24] LABS: Lipase 32 U/L (<53)
[2025-04-01 10:25] LABS: Amylase 25 U/L (30-118)
[2025-04-01 10:26] LABS: ALT 15 U/L (10-49); AST 18 U/L (<34); Albumin 4.2 g/dL (3.2-5.0); Alkaline Phosphatase 67 U/L (46-116); Anion Gap 7 mmol/L (3-11); BUN 16 mg/dL (9-23); Bilirubin, Total 0.30 mg/dL (0.2-1.2); CO2 28.0 mmol/L (20.0-31.0); Calcium 9.0 mg/dL (8.3-10.6); Chloride 111 mmol/L (98-107); Glucose 195 mg/dL (74-106); Potassium 4.2 mmol/L (3.5-5.1); Sodium 146 mmol/L (136-145); Total Protein 6.7 g/dL (5.7-8.2)
== END 2025-04-01 08:19 | disposition home or self-care (01) ==
LOC: LBO 08:18
PROVIDERS: PCP Nurse Practitioner Family; Visit Provider Nurse Practitioner Family
DX: R10.11 Right upper quadrant pain (principal); E11.8 Type 2 diabetes mellitus with unspecified complications; E11.65 Type 2 diabetes mellitus with hyperglycemia; I10 Essential (primary) hypertension
CPT/HCPCS: 36415; 76857; 80053; 83690; 85027; 76705; 82150; 83036